=== PATIENT | male | born 1930 | race African-American/Black ===

== ENCOUNTER 2016-10-24 14:28 | Emergency (ER) | payer MEDICARE, OTHER ==
[~2016-10-24] VITALS: Ht 190.5 cm; Wt 90.9 kg
[~2016-10-24 14:28] MED LIST: ACETAMINOPHEN PO; ADLT ASA LOW81 MG PO; ASCORBIC ACD500 MG PO; ASPIRIN EC81 MG PO; ASPIRIN81 MG PO; AUGMENTIN875TAB PO; CARVEDILOL12.5 MG PO; CARVEDILOL25 MG PO; COLCHICINE0.6 M2 PO; COUMADIN5 MG; COUMADIN5 MG PO; ELIQUIS2.5 MG; ELIQUIS2.5 MG PO; ENALAPRIL10 MG; FLOMAX0.4 M1 PO; FLUARIX QUADRIV1 INJ IM; FUROSEMIDE40 MG PO; HYDROCHLOROT12.5 MG PO; HYDROCO/APAP; HYDROCO/APAP1 TA9 OR; HYDROCO/APAP1 TA9 PO; HYDROCODONE/ACE1 TAB PO; IPRATROPIU0.5 MG/3 M NEB; IRON325 MG PO; JANTOVEN5 MG PO; KEFLEX250 MG PO; LASIX 10 MG10 MG/TA1 PO; LASIX40 MG PO; LIPITOR20 M1 PO; LISINOPRIL5 MG PO; LORTAB 10-325 M1 TAB PO; LORTAB 7.57.5 MG PO; METOPROL TAR25 M1 PO; METOPROL TAR50 MG; MICRO K PO; ONDANSETRON HCL4 MG PO; POT CHLORIDE10 ME1 PO; PRAVASTATIN20 MG; PRAVASTATIN80 MG PO; PROBENECID/COLC1 TAB PO; PROTONIX40 M2 PO; SPIRONOLACT25 MG PO; SUCRALFATE1 GM PO; TORSEMIDE20 M1 PO; UNABLE TO RECONCILE; WARFARIN2.5 MG PO; WARFARIN4 MG PO; WARFARIN5 MG PO; ZESTRIL PO; ZESTRIL/PRI10 MG/TAB PO; ZESTRIL5 M1 PO; ZOFRAN4 M1 PO; [UNRECOGNIZED DRUG - OTHER] PO
[2016-10-24] MEDS ORDERED: POTASSIUM CHLO10 MEQ PO (14:46)
[2016-10-24 14:57] LABS: HEMATOCRIT 37.8 % (39.0-50.0); HEMOGLOBIN 12.5 g/dl (14.0-18.0); IMMATURE GRANULOCYTES 0.2 % (0.0-1.0); MEAN CELL VOLUME 91.7 fL CALC (80.0-100.0); MEAN CORPUSCULAR HGB 30.3 pG CALC (26.0-32.0); MEAN CORPUSCULAR HGB CONC 33.1 g/L CALC (32.0-36.0); NEUT# 2.26 thou/uL (1.82-7.42); RED BLOOD COUNT 4.12 mill/uL (4.70-6.10); RED CELL DISTRI WIDTH 15.6 % (11.5-15.5)
[2016-10-24 15:19] LABS: PROTHROMBIN TIME 11.3 SECONDS (9.0-12.5)
[2016-10-24 15:21] LABS: ALBUMIN 4.1 g/dL (3.2-5.0); ALKALINE PHOSPHATASE 83 u/l (38-126); AMYLASE 102 u/l (30-110); ANION GAP 17 (6-22 (CALC)); BILIRUBIN, TOTAL 0.8 mg/dL (0.0-1.4); BUN 23 mg/dL (8-23); BUN/CREATININE RATIO 15 (12-20 (CALC)); CALCIUM 9.4 mg/dL (8.4-10.2); CARBON DIOXIDE 26 mmol/l (22-30); CHLORIDE 104 mmol/l (95-108); CREATININE 1.5 mg/dL (0.7-1.3); GFR 45 ML/MIN (>=60 (CALC)); GFR FOR AFR.AMER. 54 ML/MIN (>=60 (CALC)); GLUCOSE 84 mg/dL (82-115); LIPASE 101 u/l (23-300); POTASSIUM 4.4 mmol/l (3.5-5.1); SGOT/AST 28 u/l (19-48); SGPT/ALT 17 u/l (11-66); SODIUM 143 mmol/l (137-146); TOTAL PROTEIN 8.2 g/dL (6.3-8.2)
[2016-10-24 15:33] LABS: MYOGLOBIN 35 ng/mL (0 - 121)
[2016-10-24 16:21] LABS: URINE BILIRUBIN - DIPSTICK NEGATIVE (NEGATIVE); URINE BLOOD DIPSTICK NEGATIVE (NEGATIVE); URINE CLARITY CLEAR; URINE COLOR YELLOW; URINE GLUCOSE - DIPSTICK NEGATIVE (NEGATIVE); URINE KETONE NEGATIVE (NEGATIVE); URINE LEUK ESTERASE NEGATIVE (NEGATIVE); URINE NITRITE - DIPSTICK NEGATIVE (Negative); URINE PH 5.5 (4.5-8.0); URINE PROTEIN - DIPSTICK NEGATIVE (NEG-TRACE); URINE UROBILINOGEN - DIPSTICK 0.2 E.U./dL (0.2)
[2016-10-24 19:08] VITALS: BP 151/73
== END 2016-10-24 19:12 | disposition home or self-care (01) ==
LOC: ED 14:28
PROVIDERS: Emergency Medicine
DX: R07.89 Other chest pain (principal); R94.31 Abnormal electrocardiogram [ECG] [EKG]; Z95.0 Presence of cardiac pacemaker; Z86.711 Personal history of pulmonary embolism

== ENCOUNTER 2016-11-27 10:17 | Observation (INO) | payer MEDICARE, OTHER ==
[~2016-11-27] VITALS: Ht 190.5 cm; Wt 88.1 kg
[2016-11-27] VITALS (9 sets, daily range): BP systolic 99–144; BP diastolic 65–86
[~2016-11-27 10:17] MED LIST changes: +POTASSIUM CHLO10 MEQ PO
--- NOTE | 2016-11-27 10:45 | NUR ---
PT ARRIVED TO THE UNIT VIA WHEELCHAIR A DIRECT ADMIT, PT AMBULATED WITH A STRONG STEADY GAIT TO THE DIGITAL SCALE AND THEN TO THE BED, PT A & O X3, PERRL, LUNG SOUNDS CLEAR IN ALL GUZMAN, TRACE EDEMA IN BILAT ANKLES WITH WEAK PEDAL PULSES, DONAVON HOSE APPLIED PER MD ORDER, 22G R HAND IV STARTED AND SALINE LOCKED, MONITORING EQUIPMENT AND CALL MATT EXPLAINED TO PT PRIOR TO APPLYING EQUIPMENT, PT VERBALIZED UNDERSTANDING, ADMISSION ASSESSMENT COMPLETED, SEE INTERVENTIONS, SAFETY MEASURES INTRODUCED, CALL MATT WITHIN REACH
--- NOTE | 2016-11-27 11:00 | NUR ---
DR LAM'S OFFICE CALLED AND CONFIRMED PT WAS ADMITTED TO ICU BED 6;
[2016-11-27 11:21] LABS: HEMATOCRIT 38.3 % (39.0-50.0); IMMATURE GRANULOCYTES 0.4 % (0.0-1.0); MEAN CELL VOLUME 89.9 fL CALC (80.0-100.0); MEAN CORPUSCULAR HGB 30.5 pG CALC (26.0-32.0); MEAN CORPUSCULAR HGB CONC 33.9 g/L CALC (32.0-36.0); NEUT# 2.41 thou/uL (1.82-7.42); RED BLOOD COUNT 4.26 mill/uL (4.70-6.10); RED CELL DISTRI WIDTH 16.2 % (11.5-15.5)
--- NOTE | 2016-11-27 11:30 | NUR ---
SETUP ASSISTANCE PROVIDED WITH LUNCH TRAY
--- NOTE | 2016-11-27 12:05 | NUR ---
PT LAYING IN BED WATCHING TV, VERBALIZES NO COMPLAINTS, TOLERATED LUNCH WELL, REMINDED TO CALL FOR ASSISTANCE CALL MATT WITHIN REACH
--- NOTE | 2016-11-27 12:30 | NUR ---
LAB AT BEDSIDE FOR REDRAW
[2016-11-27 13:05] LABS: CALCIUM 9.6 mg/dL (8.4-10.2); CREATININE 1.4 mg/dL (0.7-1.3); POTASSIUM 4.1 mmol/l (3.5-5.1)
--- NOTE | 2016-11-27 13:16 | NUR ---
PT LAYING IN BED RESTING WITH EYES CLOSED, AROUSES EASILY TO VERBAL STIMULI, NO S/S OF DISTRESS, CALL MATT WITHIN REACH
--- NOTE | 2016-11-27 14:40 | NUR ---
PT LAYING IN BED WATCHING TV, VERBALIZES NO COMPLAINTS, CALL MATT WITHIN REACH
--- NOTE | 2016-11-27 16:16 | NUR ---
PT TALKING ON CELL PHONE, DENIES ANY CHEST PAIN, REMINDED TO CALL FOR ASSISTANCE, CALL MATT WITHIN REACH
--- NOTE | 2016-11-27 16:55 | NUR ---
HERPETOLOGY TEACHER AT BEDSIDE DISCUSSING DISCHARGE PLANNING
--- NOTE | 2016-11-27 17:45 | NUR ---
SETUP ASSISTANCE PROVIDED WITH PM MEAL TRAY
--- NOTE | 2016-11-27 18:50 | NUR ---
RECEIVED REPORT FROM ESTEE QUEVEDO LPN. ASSUMED PT CARE.
--- NOTE | 2016-11-27 19:00 | NUR ---
DR. LAM IN TO SEE PT; PT DENIES ANY CHEST PAIN OR GENERALIZED DISCOMFORT AT THIS TIME, RESP EVEN AND UNLABORED, PACED ON MONITOR HR 56-66, BP 106/62, SPO2 98% ON ROOM AIR; LUNGS ARE CLEAR ON AUSCULTATION, DENIES ANY SKIN ISSUES, AND NONE NOTED; DONAVON HOSE ARE IN PLACE, SKIN IS WARM AND DRY, ACYANOTIC, SOME BILATERAL TRACE EDEMA NOTED ON ANKLES. RADIAL PULSES ARE STRONG, EXPLAINED MED SCHEDULE AND PLAN OF CARE; VOICES UNDERSTANDING, CALL MATT IS AT REACH WILL CONTINUE TO MONITOR.
--- NOTE | 2016-11-27 20:38 | NUR ---
PT RESTING IN BED WATCHING TV, ALERT AND ORIENTED X3; C/O ACHING ABDOMINAL PAIN; RATES IT AT 3/10, REQUESTING PAIN MED FOR IT. WILL MEDICATE DRDarius ORDERS; VSS, AFEBRILE, PACER ON MONITOR; DENIES CHEST PAIN OR N/V; WILL CONTINUE TO MONITOR. CALL MATT IS AT REACH.
--- NOTE | 2016-11-27 20:53 | NUR ---
MEDICATED WITH LORTAB FOR ACHING GENERALIZED PAIN, RATES PAIN AT 6/10, WILL CONTINUE TO REASSESS. ENCOURAGED TO CALL IF NEEDED, DENIES CHEST PAIN AT THIS TIME; NO DISTRESS NOTED; CALL MATT IS AT REACH.
--- NOTE | 2016-11-27 22:10 | NUR ---
PT IS RESTING QUIETLY IN BED; RESPONDS TO VERBAL OR PHYSICAL STIMULI; DENIES CHEST PAIN OR OTHER DISCOMFORT AT THIS TIME, RESP ARE EVEN AND UNLABORED; CALL MATT IS AT REACH WILL CONTINUE TO MONITOR.
--- NOTE | 2016-11-27 23:10 | NUR ---
VETERINARIAN ASSISTANT IN PT ROOM DRAWING TROPONIN.
[2016-11-28] VITALS (9 sets, daily range): BP systolic 100–156; BP diastolic 68–79
--- NOTE | 2016-11-28 00:11 | NUR ---
PT CONTINUES DENYING CHEST PAIN OR GENRALIZED PAIN AT THIS TIME; AFEBRILE, PACED ON MONITOR, HR 60, RR 18 EVEN AND UNLABORED, BP 118/69, SPO2 96% ON RA, IV SITE IS FREE OF REDNESS OR EDEMA, FLUSHES WELL, ENCORAGED PT TO CALL IF NEEDED; CALL MATT IS AT REACH, WILL CONTINUE TO MONITOR.
--- NOTE | 2016-11-28 02:11 | NUR ---
FOUND PT LYING ON RIGHT SIDE POSITION, APPEARS TO BE SLEEPING WITH EYES CLOSED; RESP ARE EVEN AND UNLABORED; VSS, VOICES NO NEW COMPLAINTS AT THIS TIME. WILL CONTINUE TO MONITOR. CALL MATT AT REACH.
--- NOTE | 2016-11-28 04:05 | NUR ---
SQL ANALYST IN PT ROOM DRAWING LAB SAMPLES.
--- NOTE | 2016-11-28 04:12 | NUR ---
PT VOICES NO NEW COMPLAINTS AT THIS TIME; NO SIGNS OF DISTRESS NOTED, VSS, RESP ARE UNLABORED; WILL CONTINUE TO MONITOR.
--- NOTE | 2016-11-28 04:20 | NUR ---
RT IN PT ROOM DOING A EKG AT THIS TIME.
[2016-11-28 05:28] LABS: ALBUMIN 3.6 g/dL (3.2-5.0); BILIRUBIN, TOTAL 0.5 mg/dL (0.0-1.4); CALCIUM 8.9 mg/dL (8.4-10.2); CHOLESTEROL HDL RATIO 4.5 (<4.4 (CALC)); CREATININE 1.4 mg/dL (0.7-1.3); POTASSIUM 3.8 mmol/l (3.5-5.1); TOTAL PROTEIN 6.6 g/dL (6.3-8.2)
--- NOTE | 2016-11-28 05:30 | NUR ---
RADIOLOGIST TECHN IN PT ROOM FOR CXR.
--- NOTE | 2016-11-28 06:30 | NUR ---
PT AWAKE, ALERT AND ORIENTED X3; DENIES CHEST PAIN, C/O ABDOMEN PAIN, RATES IT AT 6/10; MEDICATED WITH CARAFATE AT THIS TIME; RESP ARE EVEN AND UNLABORED; VSS, AFEBRILE, NO DISTRESS NOTED; IV SITE REMAINS PATENT, ENCOURAGED TO CALL IF NEEDED. WILL CONTINUE TO REASSESS.
--- NOTE | 2016-11-28 07:20 | NUR ---
PT LAYING IN BED RESTING WITH EYES CLOSED, AROUSES EASILY TO VERBAL STIMULI, A&O X3, PERRL, PT DENIES ANY CHEST PAIN OR ABD PAIN, HR PACED 60, RESP. 20, BP 156/79, O2 98% ON RA, LUNG SOUNDS CLEAR IN ALL GUZMAN, 22G R HAND SALINE LOCKED, NO BLEEDING AT SITE, TRACE EDEMA IN BILAT ANKLES, AM ASSESSMENT COMPLETE, SEE INTERVENTIONS, SAFETY MEASURES REINFORCED, CALL MATT WITHIN REACH
--- NOTE | 2016-11-28 07:45 | NUR ---
SETUP ASSISTANCE PROVIDED WITH MORENA ALEXANDRE
--- NOTE | 2016-11-28 08:10 | NUR ---
PT LAYING IN BED WATCHING TV, VERBALIZES NO COMPLAINTS, PT TOLERATED AM MEAL WELL, REMINDED TO CALL FOR ASSISTANCE, CALL MATT WITHIN REACH
--- NOTE | 2016-11-28 08:10 | NUR ---
DR LAM AT BEDSIDE DISCUSSING PLAN OF CARE AND POSSIBLE DISCHARGE
--- NOTE | 2016-11-28 10:31 | NUR ---
LAB AT BEDSIDE
--- NOTE | 2016-11-28 11:16 | NUR ---
DR LAM'S OFFICE NOTIFIED OF 4TH TROPONIN RESULT PER MD REQUEST, SPOKE TO RAMILA DUE TO MD BEING IN STRESS LAB
--- NOTE | 2016-11-28 11:42 | NUR ---
PT ASSISTED TO THE BSC AND BACK TO BED, PT AMBULATED WITH A STRONG UNSTEADY GAIT, CALL MATT WITHIN REACH
--- NOTE | 2016-11-28 11:50 | NUR ---
PT AMBULATING IN THE UNIT, PT TOLERATING WELL
--- NOTE | 2016-11-28 13:17 | NUR ---
PT LAYING IN BED WATCHING TV, NO S/S OF DISTRESS, CALL MATT WITHIN REACH
== END 2016-11-28 13:45 | disposition home or self-care (01) ==
LOC: ENPENDDIS → ICU 10:17
PROVIDERS: ADMIT Internal Medicine Geriatric Medicine; ATTEND Internal Medicine Geriatric Medicine
DX: I25.110 Atherosclerotic heart disease of native coronary artery with unstable angina pectoris (principal); I13.0 Hypertensive heart and chronic kidney disease with heart failure and stage 1 through stage 4 chronic kidney disease, or unspecified chronic kidney disease; I50.42 Chronic combined systolic (congestive) and diastolic (congestive) heart failure; N18.3 Chronic kidney disease, stage 3 (moderate); E78.5 Hyperlipidemia, unspecified; M19.90 Unspecified osteoarthritis, unspecified site; I49.3 Ventricular premature depolarization; K21.9 Gastro-esophageal reflux disease without esophagitis; K27.9 Peptic ulcer, site unspecified, unspecified as acute or chronic, without hemorrhage or perforation; Z95.810 Presence of automatic (implantable) cardiac defibrillator

== ENCOUNTER 2016-12-31 13:58 | Observation (INO) | payer MEDICARE, OTHER ==
[~2016-12-31] VITALS: Ht 190.5 cm; Wt 89.4 kg
[2016-12-31 14:15] VITALS: BP 151/77
[2016-12-31 15:00] LABS: HEMATOCRIT 37.4 % (39.0-50.0); HEMOGLOBIN 12.7 g/dl (14.0-18.0); MEAN CELL VOLUME 89.9 fL CALC (80.0-100.0); MEAN CORPUSCULAR HGB 30.5 pG CALC (26.0-32.0); RED BLOOD COUNT 4.16 mill/uL (4.70-6.10); RED CELL DISTRI WIDTH 16.8 % (11.5-15.5)
[2016-12-31 15:14] LABS: ALBUMIN 4.4 g/dL (3.2-5.0); BILIRUBIN, TOTAL 0.8 mg/dL (0.0-1.4); CALCIUM 9.9 mg/dL (8.4-10.2); CREATININE 1.5 mg/dL (0.7-1.3); POTASSIUM 4.4 mmol/l (3.5-5.1); TOTAL PROTEIN 7.9 g/dL (6.3-8.2)
--- NOTE | 2016-12-31 16:07 | NUR ---
NOTIFIED TERE BRUNNER ABOUT ER CALLING. SAID "HE RAN A EIGHT BEAT RUN OF V-TACH WITH A PAUSE AND A SEVEN BEAT RUN OF V-TACH. NOTIFIED ER TO SEND UP THE STRIP.
[2016-12-31 16:19] VITALS: BP 138/75
--- NOTE | 2016-12-31 16:30 | NUR ---
NOTIFIED FROM SHERI JACOB IN ER THAT HE RAN A 12 BEAT OF V-TACH. NOTIFIED NURSE OF V-TACH. CALLED ER PER NURSE TO FIND OUT IF HE WAS RUNNING V-TACH STILL. SHERI TOLD ME HE WAS BACKED PACED ON THE MONITOR.
--- NOTE | 2016-12-31 20:00 | NUR ---
PATIENT RESTING IN BED AT THIS TIME-AWAKE ALERT AND ORIENTEDX3. IV STARTED TO LEFT AC-#22 GAUGE WITH GOOD BLOOD RETURN. IVF HOOKED UP AT 60CC/HR ORDERED. SAFETY PRECAUTIONS REVIEWED WITH PATIENT. CALL LIGHT IN REACH. WILL CONT TO MONITOR.
[2016-12-31 20:27] VITALS: BP 132/84
[2016-12-31 22:30] VITALS: BP 127/81
--- NOTE | 2016-12-31 22:42 | NUR ---
PATIENT CALLED AND STATES THAT HE IS HAVING LEFT SIDEDCHEST AND BACK PAIN. O2 VIA NASAL CANNULA APPLIED. VS TAKEN AND RECORDED. TELE READING PACED AT 60. PATIENT MEDICATED FOR 5/10 ON PAIN SCALE WITH LORTAB 10/325MG PO. CALL LIGHT IN REACH. WILL CONT TO MONITOR.
--- NOTE | 2017-01-01 | NUR ---
PATIENT STATES THAT HE HAD GOOD RELIEF FROM LORTAB GIVEN EARLIER FOR CHEST PAIN. O2 REMAINS IN PLACE AT THIS TIME. CALL LIGHT IN REACH. WILL CONT TO MONITOR.
[2017-01-01 02:03] VITALS: BP 133/84
--- NOTE | 2017-01-01 04:26 | NUR ---
PATIENT APPEARS SLEEPINGA T THIS TIME WITH EYES CLOSED. CALL LIGHT IN REACH. WILL CONT TO MONITOR.
[2017-01-01 05:35] VITALS: BP 135/90
[2017-01-01 06:16] LABS: HEMATOCRIT 36.9 % (39.0-50.0); HEMOGLOBIN 12.3 g/dl (14.0-18.0); IMMATURE GRANULOCYTES 0.3 % (0.0-1.0); MEAN CELL VOLUME 90.9 fL CALC (80.0-100.0); MEAN CORPUSCULAR HGB 30.3 pG CALC (26.0-32.0); MEAN CORPUSCULAR HGB CONC 33.3 g/L CALC (32.0-36.0); NEUT# 3.53 thou/uL (1.82-7.42); RED BLOOD COUNT 4.06 mill/uL (4.70-6.10)
[2017-01-01 06:25] LABS: URINE BILIRUBIN - DIPSTICK NEGATIVE (NEGATIVE); URINE BLOOD DIPSTICK NEGATIVE (NEGATIVE); URINE CLARITY CLEAR; URINE COLOR YELLOW; URINE GLUCOSE - DIPSTICK NEGATIVE (NEGATIVE); URINE KETONE NEGATIVE (NEGATIVE); URINE LEUK ESTERASE NEGATIVE (Negative); URINE NITRITE - DIPSTICK NEGATIVE (Negative); URINE PH 6.5 (4.5-8.0); URINE PROTEIN - DIPSTICK NEGATIVE (NEG-TRACE); URINE UROBILINOGEN - DIPSTICK 0.2 E.U./dL (0.2)
[2017-01-01 06:43] LABS: ALBUMIN 3.9 g/dL (3.2-5.0); ALKALINE PHOSPHATASE 75 u/l (38-126); ANION GAP 14 (6-22 (CALC)); BILIRUBIN, TOTAL 0.9 mg/dL (0.0-1.4); BUN 21 mg/dL (8-23); BUN/CREATININE RATIO 16 (12-20 (CALC)); CALCULATED LDLCHOLESTEROL 147 mg/dL (62-129 (CALC)); CARBON DIOXIDE 29 mmol/l (22-30); CHLORIDE 102 mmol/l (95-108); CHOLESTEROL HDL RATIO 4.3 (<4.4 (CALC)); CREATININE 1.3 mg/dL (0.7-1.3); GFR 53 ML/MIN (>=60 (CALC)); GFR FOR AFR.AMER. > 60 ML/MIN (>=60 (CALC)); GLUCOSE 81 mg/dL (82-115); HDL CHOLESTEROL 53 mg/dL (>=40); POTASSIUM 4.3 mmol/l (3.5-5.1); SGOT/AST 15 u/l (19-48); SGPT/ALT 24 u/l (11-66); SODIUM 140 mmol/l (137-146); TOTAL CHOLESTEROL 224 mg/dl (0-199); TOTAL TRIGLYCERIDES 123 mg/dl (30-149); VLDL CHOLESTROL 25 mg/dl (0-38 (CALC))
[2017-01-01 08:36] VITALS: BP 139/67
--- NOTE | 2017-01-01 08:38 | NUR ---
REPORT RECEIVED FROM MORNING NURSE; PT.HAS EATEN BREAKFAST AND IS RESTING IN BED WATCHING TV. DENIES ANY PAIN AT THIS TIME. PT.V/S AND ASSESSMENT PERFORMED AND MORNING MEDICATIONS ADMINISTERED. DENIES ANY FURTHER NEEDS AT THIS TIME
--- NOTE | 2017-01-01 12:09 | NUR ---
PT.AMBULATING HALLWAY, APPEARS TO BE STABLE ON FEET, NO S/S OF DISTRESS DURING AMBULATION
[2017-01-01 12:30] VITALS: BP 114/70
[2017-01-01 16:19] VITALS: BP 155/86
[2017-01-01] MEDS ORDERED: LORTAB 7.5-3251 TAB PO (17:37)
== END 2017-01-01 18:11 | disposition home or self-care (01) ==
LOC: ENPENDDIS → MS2 13:58
PROVIDERS: ADMIT Internal Medicine Geriatric Medicine; ATTEND Internal Medicine Geriatric Medicine
DX: R07.2 Precordial pain (principal); I25.10 Atherosclerotic heart disease of native coronary artery without angina pectoris; I13.0 Hypertensive heart and chronic kidney disease with heart failure and stage 1 through stage 4 chronic kidney disease, or unspecified chronic kidney disease; N18.3 Chronic kidney disease, stage 3 (moderate); I50.42 Chronic combined systolic (congestive) and diastolic (congestive) heart failure; M19.90 Unspecified osteoarthritis, unspecified site; K21.9 Gastro-esophageal reflux disease without esophagitis; E78.5 Hyperlipidemia, unspecified

== ENCOUNTER 2017-01-20 07:34 | Observation (INO) | payer MEDICARE, OTHER ==
[~2017-01-20] VITALS: Ht 190.5 cm; Wt 86.2 kg
[~2017-01-20 07:34] MED LIST changes: +LORTAB 7.5-3251 TAB PO
--- NOTE | 2017-01-20 07:35 | NUR ---
PT TO ROOM 10 VIA WC. ABLE TO STAND AND TRANSFER W/CGA
[2017-01-20 08:05] LABS: HEMATOCRIT 36.7 % (39.0-50.0); HEMOGLOBIN 12.4 g/dl (14.0-18.0); IMMATURE GRANULOCYTES 0.3 % (0.0-1.0); MEAN CELL VOLUME 90.8 fL CALC (80.0-100.0); MEAN CORPUSCULAR HGB 30.7 pG CALC (26.0-32.0); MEAN CORPUSCULAR HGB CONC 33.8 g/L CALC (32.0-36.0); NEUT# 3.83 thou/uL (1.82-7.42); RED BLOOD COUNT 4.04 mill/uL (4.70-6.10); RED CELL DISTRI WIDTH 16.1 % (11.5-15.5)
--- NOTE | 2017-01-20 08:05 | NUR ---
pt to room per w/c, states has pain off and on since last night
[2017-01-20 08:20] LABS: BILIRUBIN, TOTAL 0.6 mg/dL (0.0-1.4); CALCIUM 9.5 mg/dL (8.4-10.2); CREATININE 1.4 mg/dL (0.7-1.3); POTASSIUM 4.2 mmol/l (3.5-5.1); TOTAL PROTEIN 8.1 g/dL (6.3-8.2)
--- NOTE | 2017-01-20 08:42 | NUR ---
NITRO SL X 1 FOR CONTINUED C/O CHEST PAIN PER MD. BP 138/68 NO C/O N/V
--- NOTE | 2017-01-20 09:06 | NUR ---
PT REPORTS RELIEF FROM CHEST PAIN. VSS. COMFORT MEASURES PROVIDED. MD AT BEDSIDE EVALUATING PT AND DISCUSSING POC.
--- NOTE | 2017-01-20 09:29 | NUR ---
DR WOLFF SPOKE W/DR LAM VIA PHONE. PT ADVISED OF POC OBS ON MEDSURG. VSS. REPORTS NO PAIN AT THIS TIME.
--- NOTE | 2017-01-20 09:50 | NUR ---
REPORT PROVIDED TO [facility] NURSE ON MEDSURG. PT TO [facility] ON TELEMETRY. IV SITE HEALTHY. NO C/O CHEST PAIN AT THIS TIME. VSS.
--- NOTE | 2017-01-20 10:00 | NUR ---
PT ARRIVED FROM ER VIA STRETCHER ACCOMPANIED BY STAFF. IV SITE IS FREE FROM REDNESS OR EDEMA,
[2017-01-20 10:22] VITALS: BP 147/67
--- NOTE | 2017-01-20 10:40 | NUR ---
LEFT A MESSAGE AT [phone] LAM TO CALL RE: NEW ADMISSION. THEN ATTEMPTED TO CALL HIS HOME NUMBER NO ANSWER
--- NOTE | 2017-01-20 11:08 | NUR ---
RETURNED CALL WITH NEW ORDERS
--- NOTE | 2017-01-20 12:00 | NUR ---
PT HAS BEEN SITTING UP IN THE COUCH NO DISTRESS NOTED. IV SITE IS FREE FROM REDNESS OR EDEMA. TELE MONITOR IN PLACE.,
[2017-01-20 15:35] VITALS: BP 126/75
--- NOTE | 2017-01-20 16:00 | NUR ---
PT IS RELAXING IN BED HAS AMBUALTED IN THE [place] AND VISITED WITH FRIENDS.,
[2017-01-20 19:20] VITALS: BP 112/63
--- NOTE | 2017-01-20 20:50 | NUR ---
PT RESTING IN SUPINE POSITION;PT DENIES ANY CHEST PAIN AT THIS TIME;ASSESSMENT COMPLETED;BP OF 114/68 AND HR OF 62 OBTAINED;#20G TO RIGHT HAND FLUSHED AND PATENT;TELE MONITOR IN PLACE READING PACED 72;NITRO PASTE TO RIGHT SHOULDER NOTED;PEDAL PULSES WEAK;SKIN INTACT;PT DENIES ANY NEEDS;SAFETY PRECAUTIONS REINFORCED;PT EDUCATED TO CALL FOR ASSISTANCE IF NEEDED;BED IN LOWEST POSITION WITH CALL LIGHT IN REACH;WILL CONTINUE TO MONITOR
[2017-01-20 23:37] VITALS: BP 127/67
--- NOTE | 2017-01-20 23:50 | NUR ---
PT APPEARS TO BE SLEEPING IN SUPINE POSITION;WOKE PT TO ADMINISTER SCHEDULED MEDICATION;PT BP 127/67 AND HR 69;PT DENIES ANY CHEST PAIN AND REFUSES SCHEDULED NITRO OINTMENT STATING "LETS NOT AND SEE HOW WE DO";PT EDUCATED TO CALL FOR ASSISTANCE IF NEEDED;CALL LIGHT IN REACH;WILL CONTINUE TO MONITOR
[2017-01-21 03:40] VITALS: BP 126/69
--- NOTE | 2017-01-21 05:40 | NUR ---
PT RESTING IN SUPINE POSITION THIS MORNING;PT DENIES ANY PAIN BUT DOES COMPLAIN OF SOME CHEST PRESSURE;VS OBTAINED,BP OF 134/84 AND HR 63;SCHEDULED NITRO OINTMENT APPLIED;TELE MONTIOR IN PLACE READING PACED 61;PT DENIES ANY OTHER NEEDS AT THIS TIME;PT EDUCATED TO CALL FOR ASSISTANCE IF NEEDED;CALL LIGHT IN REACH;WILL MONITOR CLOSELY
[2017-01-21 06:05] LABS: ALKALINE PHOSPHATASE 92 u/l (38-126); ANION GAP 13 (6-22 (CALC)); BILIRUBIN, TOTAL 0.5 mg/dL (0.0-1.4); BUN 19 mg/dL (8-23); BUN/CREATININE RATIO 15 (12-20 (CALC)); CALCIUM 8.8 mg/dL (8.4-10.2); CALCULATED LDLCHOLESTEROL 126 mg/dL (62-129 (CALC)); CARBON DIOXIDE 27 mmol/l (22-30); CHLORIDE 104 mmol/l (95-108); CHOLESTEROL HDL RATIO 5.7 (<4.4 (CALC)); CREATININE 1.3 mg/dL (0.7-1.3); GFR 53 ML/MIN (>=60 (CALC)); GFR FOR AFR.AMER. > 60 ML/MIN (>=60 (CALC)); GLUCOSE 95 mg/dL (82-115); HDL CHOLESTEROL 30 mg/dL (>=40); POTASSIUM 4.2 mmol/l (3.5-5.1); SGOT/AST 18 u/l (19-48); SGPT/ALT 30 u/l (11-66); SODIUM 139 mmol/l (137-146); TOTAL CHOLESTEROL 170 mg/dl (0-199); TOTAL PROTEIN 6.3 g/dL (6.3-8.2); TOTAL TRIGLYCERIDES 74 mg/dl (30-149); VLDL CHOLESTROL 15 mg/dl (0-38 (CALC))
--- NOTE | 2017-01-21 07:00 | NUR ---
SHIFT CHANGE REPORT FROM HERMILA SON AWAKE ALERT AND ORIENTED AMBULATING HALLWAYS AT THIS TIME, NO C/O DISCOMFORT, TELE MONITOR IN PLACE, CALL MATT IN REACH.
[2017-01-21 07:50] VITALS: BP 129/76
--- NOTE | 2017-01-21 08:39 | NUR ---
DR LAM ROUNDING WITH PT AT THIS TIME AND DISCUSSED FOLLOW U- WITH CARDIOLOGY
[2017-01-21 11:05] VITALS: BP 124/66
--- NOTE | 2017-01-21 12:00 | NUR ---
SITTING UP IN SOFA AFTER CONSUMING MEAL, ALL NEEDS ADDRESSED, NO C/O DISCOMFORT, CALL MATT IN REACH.
[2017-01-21 14:09] VITALS: BP 122/68
[2017-01-21 17:19] VITALS: BP 122/68
--- NOTE | 2017-01-21 18:23 | NUR ---
Discharge instructions given. Patient verbalizes understanding of same. Discharged in good condition via Wheelchair to Home with friend. All belongings sent with pt.
== END 2017-01-21 18:25 | disposition home or self-care (01) ==
LOC: ED 07:34 → ED-I 09:05 → ED 09:25 → MS2 09:26
PROVIDERS: Family Medicine; ADMIT Internal Medicine Geriatric Medicine; ATTEND Internal Medicine Geriatric Medicine
DX: R07.89 Other chest pain (principal); I25.10 Atherosclerotic heart disease of native coronary artery without angina pectoris; E78.5 Hyperlipidemia, unspecified; K21.9 Gastro-esophageal reflux disease without esophagitis; I13.0 Hypertensive heart and chronic kidney disease with heart failure and stage 1 through stage 4 chronic kidney disease, or unspecified chronic kidney disease; N18.9 Chronic kidney disease, unspecified; M19.90 Unspecified osteoarthritis, unspecified site; Z95.810 Presence of automatic (implantable) cardiac defibrillator; Z86.711 Personal history of pulmonary embolism
CPT/HCPCS: J1650

== ENCOUNTER 2017-02-11 07:50 | Emergency (ER) | payer MEDICARE, MEDICAID ==
[~2017-02-11] VITALS: Ht 190.5 cm; Wt 85.0 kg
[2017-02-11 10:57] VITALS: BP 121/77
== END 2017-02-11 11:05 | disposition home or self-care (01) ==
LOC: ED 07:50
DX: S29.9XXA Unspecified injury of thorax, initial encounter (principal); I10 Essential (primary) hypertension; I25.10 Atherosclerotic heart disease of native coronary artery without angina pectoris; E78.5 Hyperlipidemia, unspecified; K21.9 Gastro-esophageal reflux disease without esophagitis; M10.9 Gout, unspecified; W19.XXXA Unspecified fall, initial encounter; Y92.22 Religious institution as the place of occurrence of the external cause; Z86.711 Personal history of pulmonary embolism; Z95.0 Presence of cardiac pacemaker

== ENCOUNTER 2017-04-03 14:06 | Observation (INO) | payer MEDICARE, MEDICAID ==
[~2017-04-03] VITALS: Ht 190.5 cm; Wt 89.4 kg
[2017-04-03 14:34] LABS: HEMOGLOBIN 12.7 g/dl (14.0-18.0); IMMATURE GRANULOCYTES 0.2 % (0.0-1.0); MEAN CELL VOLUME 90.9 fL CALC (80.0-100.0); MEAN CORPUSCULAR HGB 31.2 pG CALC (26.0-32.0); MEAN CORPUSCULAR HGB CONC 34.3 g/L CALC (32.0-36.0); NEUT# 2.38 thou/uL (1.82-7.42); RED BLOOD COUNT 4.07 mill/uL (4.70-6.10); RED CELL DISTRI WIDTH 15.2 % (11.5-15.5)
[2017-04-03 14:53] LABS: ALBUMIN 3.6 g/dL (3.2-5.0); ALKALINE PHOSPHATASE 81 u/l (38-126); ANION GAP 12 (6-22 (CALC)); BILIRUBIN, TOTAL 0.7 mg/dL (0.0-1.4); BUN 15 mg/dL (8-23); BUN/CREATININE RATIO 11 (12-20 (CALC)); CALCIUM 9.4 mg/dL (8.4-10.2); CARBON DIOXIDE 32 mmol/l (22-30); CHLORIDE 104 mmol/l (95-108); CREATININE 1.3 mg/dL (0.7-1.3); GFR 53 ML/MIN (>=60 (CALC)); GFR FOR AFR.AMER. > 60 ML/MIN (>=60 (CALC)); GLUCOSE 111 mg/dL (82-115); POTASSIUM 3.5 mmol/l (3.5-5.1); SGOT/AST 26 u/l (19-48); SGPT/ALT 22 u/l (11-66); SODIUM 145 mmol/l (137-146)
[2017-04-03 15:05] LABS: MYOGLOBIN 43 ng/mL (0 - 121)
[2017-04-03 16:33] LABS: URINE BILIRUBIN - DIPSTICK NEGATIVE (NEGATIVE); URINE BLOOD DIPSTICK NEGATIVE (NEGATIVE); URINE CLARITY CLEAR; URINE COLOR YELLOW; URINE GLUCOSE - DIPSTICK NEGATIVE (NEGATIVE); URINE KETONE NEGATIVE (NEGATIVE); URINE LEUK ESTERASE NEGATIVE (NEGATIVE); URINE NITRITE - DIPSTICK NEGATIVE (Negative); URINE PROTEIN - DIPSTICK NEGATIVE (NEG-TRACE); URINE UROBILINOGEN - DIPSTICK 0.2 E.U./dL (0.2)
[2017-04-03 16:37] VITALS: BP 141/83
[2017-04-03 19:40] VITALS: BP 139/82
[2017-04-04 00:08] VITALS: BP 135/77
[2017-04-04 04:15] VITALS: BP 154/85
[2017-04-04 06:36] LABS: CHOLESTEROL HDL RATIO 4.1 (<4.4 (CALC))
[2017-04-04 07:33] VITALS: BP 159/89
[2017-04-04 11:15] VITALS: BP 145/84
== END 2017-04-04 15:20 | disposition home or self-care (01) ==
LOC: ED 14:06 → ED-I 15:08 → ED 16:02 → MS2 16:03
PROVIDERS: Emergency Medicine; ADMIT Internal Medicine; ATTEND Internal Medicine
DX: R07.9 Chest pain, unspecified (principal); I12.9 Hypertensive chronic kidney disease with stage 1 through stage 4 chronic kidney disease, or unspecified chronic kidney disease; E11.22 Type 2 diabetes mellitus with diabetic chronic kidney disease; N18.3 Chronic kidney disease, stage 3 (moderate); I25.10 Atherosclerotic heart disease of native coronary artery without angina pectoris; E78.5 Hyperlipidemia, unspecified; K21.9 Gastro-esophageal reflux disease without esophagitis; I42.9 Cardiomyopathy, unspecified; I25.2 Old myocardial infarction; Z86.711 Personal history of pulmonary embolism; Z87.891 Personal history of nicotine dependence; Z95.810 Presence of automatic (implantable) cardiac defibrillator; Z85.51 Personal history of malignant neoplasm of bladder; Z87.11 Personal history of peptic ulcer disease

== ENCOUNTER 2017-05-15 07:31 | Emergency (ER) | payer MEDICARE, MEDICAID ==
[~2017-05-15] VITALS: Ht 190.5 cm; Wt 93.0 kg
[~2017-05-15 07:31] MED LIST changes: +ISOSORB DIN10 MG PO; +NAPROXEN250 MG PO; +OMEPRAZOLE10 MG PO
[2017-05-15 08:17] LABS: HEMATOCRIT 31.8 % (39.0-50.0); HEMOGLOBIN 10.9 g/dl (14.0-18.0); IMMATURE GRANULOCYTES 0.2 % (0.0-1.0); MEAN CELL VOLUME 89.6 fL CALC (80.0-100.0); MEAN CORPUSCULAR HGB 30.7 pG CALC (26.0-32.0); MEAN CORPUSCULAR HGB CONC 34.3 g/L CALC (32.0-36.0); NEUT# 3.33 thou/uL (1.82-7.42); RED BLOOD COUNT 3.55 mill/uL (4.70-6.10); RED CELL DISTRI WIDTH 15.6 % (11.5-15.5)
[2017-05-15 08:30] LABS: ALBUMIN 3.3 g/dL (3.2-5.0); BILIRUBIN, TOTAL 0.6 mg/dL (0.0-1.4); CALCIUM 8.6 mg/dL (8.4-10.2); CREATININE 1.4 mg/dL (0.7-1.3); POTASSIUM 4.3 mmol/l (3.5-5.1); TOTAL PROTEIN 6.2 g/dL (6.3-8.2)
[2017-05-15 10:38] LABS: URINE BILIRUBIN - DIPSTICK NEGATIVE (NEGATIVE); URINE BLOOD DIPSTICK NEGATIVE (NEGATIVE); URINE COLOR YELLOW; URINE GLUCOSE - DIPSTICK NEGATIVE (NEGATIVE); URINE KETONE NEGATIVE (NEGATIVE); URINE LEUK ESTERASE NEGATIVE (NEGATIVE); URINE NITRITE - DIPSTICK NEGATIVE (Negative); URINE PROTEIN - DIPSTICK NEGATIVE (NEG-TRACE); URINE UROBILINOGEN - DIPSTICK 0.2 E.U./dL (0.2)
[2017-05-15 10:43] LABS: URINE CLARITY CLEAR
[2017-05-15 10:54] VITALS: BP 144/80
== END 2017-05-15 11:00 | disposition home or self-care (01) ==
LOC: ED 07:31
PROVIDERS: Emergency Medicine
DX: R10.32 Left lower quadrant pain (principal); R10.31 Right lower quadrant pain; R94.31 Abnormal electrocardiogram [ECG] [EKG]; Z95.0 Presence of cardiac pacemaker; I10 Essential (primary) hypertension; K21.9 Gastro-esophageal reflux disease without esophagitis; I25.10 Atherosclerotic heart disease of native coronary artery without angina pectoris

== ENCOUNTER 2017-05-17 02:53 | Emergency (ER) | payer MEDICARE, MEDICAID ==
[~2017-05-17] VITALS: Ht 190.5 cm; Wt 100.0 kg
[2017-05-17 03:57] LABS: HEMATOCRIT 34.6 % (39.0-50.0); HEMOGLOBIN 11.6 g/dl (14.0-18.0); IMMATURE GRANULOCYTES 0.2 % (0.0-1.0); MEAN CELL VOLUME 91.5 fL CALC (80.0-100.0); MEAN CORPUSCULAR HGB 30.7 pG CALC (26.0-32.0); MEAN CORPUSCULAR HGB CONC 33.5 g/L CALC (32.0-36.0); NEUT# 3.38 thou/uL (1.82-7.42); RED BLOOD COUNT 3.78 mill/uL (4.70-6.10); RED CELL DISTRI WIDTH 15.9 % (11.5-15.5)
[2017-05-17 04:09] LABS: ALBUMIN 3.5 g/dL (3.2-5.0); ALKALINE PHOSPHATASE 73 u/l (38-126); AMYLASE 85 u/l (30-110); ANION GAP 12 (6-22 (CALC)); BILIRUBIN, TOTAL 0.5 mg/dL (0.0-1.4); BUN 11 mg/dL (8-23); BUN/CREATININE RATIO 9 (12-20 (CALC)); CARBON DIOXIDE 24 mmol/l (22-30); CHLORIDE 110 mmol/l (95-108); CREATININE 1.3 mg/dL (0.7-1.3); GFR 53 ML/MIN (>=60 (CALC)); GFR FOR AFR.AMER. > 60 ML/MIN (>=60 (CALC)); GLUCOSE 92 mg/dL (82-115); LIPASE 99 u/l (23-300); POTASSIUM 4.4 mmol/l (3.5-5.1); SGOT/AST 19 u/l (19-48); SGPT/ALT 26 u/l (11-66); SODIUM 141 mmol/l (137-146); TOTAL PROTEIN 6.5 g/dL (6.3-8.2)
[2017-05-17] MEDS ORDERED: PERCOCET 5/325M1 TAB PO (04:16)
[2017-05-17 05:26] LABS: URINE BILIRUBIN - DIPSTICK NEGATIVE (NEGATIVE); URINE BLOOD DIPSTICK NEGATIVE (NEGATIVE); URINE COLOR YELLOW; URINE GLUCOSE - DIPSTICK NEGATIVE (NEGATIVE); URINE KETONE NEGATIVE (NEGATIVE); URINE LEUK ESTERASE NEGATIVE (NEGATIVE); URINE NITRITE - DIPSTICK NEGATIVE (Negative); URINE PH 5.5 (4.5-8.0); URINE PROTEIN - DIPSTICK NEGATIVE (NEG-TRACE); URINE UROBILINOGEN - DIPSTICK 0.2 E.U./dL (0.2)
[2017-05-17 05:27] LABS: URINE CLARITY SL CLOUDY
[2017-05-17] MEDS ORDERED: PROTONIX40 MG PO (06:22)
[2017-05-17 06:46] VITALS: BP 157/90
== END 2017-05-17 06:49 | disposition home or self-care (01) ==
LOC: ED 02:53
PROVIDERS: Emergency Medicine
DX: R10.84 Generalized abdominal pain (principal); I10 Essential (primary) hypertension; I25.10 Atherosclerotic heart disease of native coronary artery without angina pectoris; E78.5 Hyperlipidemia, unspecified; K21.9 Gastro-esophageal reflux disease without esophagitis; M10.9 Gout, unspecified; Z85.51 Personal history of malignant neoplasm of bladder; Z95.0 Presence of cardiac pacemaker; Z86.711 Personal history of pulmonary embolism
CPT/HCPCS: S0164

== ENCOUNTER 2017-06-08 10:51 | Emergency (ER) | payer MEDICARE ==
[~2017-06-08] VITALS: Ht 190.5 cm; Wt 100.0 kg
[~2017-06-08 10:51] MED LIST changes: +PERCOCET 5/325M1 TAB PO; +PROTONIX40 MG PO
[2017-06-08 12:27] LABS: HEMATOCRIT 39.9 % (39.0-50.0); HEMOGLOBIN 12.4 g/dl (14.0-18.0); IMMATURE GRANULOCYTES 0.3 % (0.0-1.0); MEAN CELL VOLUME 97.1 fL CALC (80.0-100.0); MEAN CORPUSCULAR HGB 30.2 pG CALC (26.0-32.0); MEAN CORPUSCULAR HGB CONC 31.1 g/L CALC (32.0-36.0); NEUT# 2.06 thou/uL (1.82-7.42); RED BLOOD COUNT 4.11 mill/uL (4.70-6.10)
[2017-06-08 12:44] LABS: ALBUMIN 3.7 g/dL (3.2-5.0); ALKALINE PHOSPHATASE 75 u/l (38-126); ANION GAP 16 (6-22 (CALC)); BILIRUBIN, TOTAL 0.6 mg/dL (0.0-1.4); BUN 11 mg/dL (8-23); BUN/CREATININE RATIO 8 (12-20 (CALC)); CALCIUM 8.6 mg/dL (8.4-10.2); CARBON DIOXIDE 20 mmol/l (22-30); CHLORIDE 108 mmol/l (95-108); CREATININE 1.3 mg/dL (0.7-1.3); GFR 53 ML/MIN (>=60 (CALC)); GFR FOR AFR.AMER. > 60 ML/MIN (>=60 (CALC)); GLUCOSE 129 mg/dL (82-115); POTASSIUM 3.5 mmol/l (3.5-5.1); SGOT/AST 42 u/l (19-48); SGPT/ALT 18 u/l (11-66); SODIUM 140 mmol/l (137-146); TOTAL PROTEIN 6.7 g/dL (6.3-8.2)
[2017-06-08 12:45] LABS: DIGOXIN 1.4 ng/mL (0.8-2.0)
[2017-06-08 12:55] LABS: MYOGLOBIN 48 ng/mL (0 - 121)
[2017-06-08 13:44] LABS: URINE BILIRUBIN - DIPSTICK NEGATIVE (NEGATIVE); URINE BLOOD DIPSTICK NEGATIVE (NEGATIVE); URINE COLOR YELLOW; URINE GLUCOSE - DIPSTICK NEGATIVE (NEGATIVE); URINE KETONE NEGATIVE (NEGATIVE); URINE LEUK ESTERASE NEGATIVE (NEGATIVE); URINE NITRITE - DIPSTICK NEGATIVE (Negative); URINE PROTEIN - DIPSTICK TRACE mg/dL (NEG-TRACE); URINE SPECIFIC GRAVITY 1.025; URINE UROBILINOGEN - DIPSTICK 0.2 E.U./dL (0.2)
[2017-06-08 13:45] LABS: URINE CLARITY CLEAR
[2017-06-08 15:11] VITALS: BP 172/82
== END 2017-06-08 15:20 | disposition home or self-care (01) ==
LOC: ED 10:51
PROVIDERS: Emergency Medicine
DX: R00.2 Palpitations (principal); I10 Essential (primary) hypertension; I25.10 Atherosclerotic heart disease of native coronary artery without angina pectoris; E78.5 Hyperlipidemia, unspecified; K21.9 Gastro-esophageal reflux disease without esophagitis; Z95.0 Presence of cardiac pacemaker; Z86.711 Personal history of pulmonary embolism

== ENCOUNTER 2017-06-28 15:30 | Emergency (ER) | payer MEDICARE ==
[~2017-06-28] VITALS: Ht 190.5 cm; Wt 85.0 kg
[2017-06-28 18:13] LABS: HEMATOCRIT 37.5 % (39.0-50.0); HEMOGLOBIN 12.5 g/dl (14.0-18.0); IMMATURE GRANULOCYTES 0.4 % (0.0-1.0); MEAN CELL VOLUME 89.9 fL CALC (80.0-100.0); MEAN CORPUSCULAR HGB CONC 33.3 g/L CALC (32.0-36.0); NEUT# 2.8 thou/uL (1.82-7.42); RED BLOOD COUNT 4.17 mill/uL (4.70-6.10); RED CELL DISTRI WIDTH 15.5 % (11.5-15.5)
[2017-06-28 18:49] LABS: ALBUMIN 3.7 g/dL (3.2-5.0); BILIRUBIN, TOTAL 0.4 mg/dL (0.0-1.4); CALCIUM 9.8 mg/dL (8.4-10.2); CREATININE 1.5 mg/dL (0.7-1.3); POTASSIUM 3.7 mmol/l (3.5-5.1); TOTAL PROTEIN 6.7 g/dL (6.3-8.2)
[2017-06-28] MEDS ORDERED: KLOR-CON 1010 MEQ PO (20:43)
[2017-06-28] MEDS ORDERED: METOPROLOL SUCC25 MG PO (20:43)
[2017-06-28] MEDS ORDERED: SUCRALFATE1 GM PO (20:44)
[2017-06-28] MEDS ORDERED: LASIX20 MG PO (20:45)
[2017-06-28] MEDS ORDERED: DIGOXIN0.125 MG PO (20:45)
[2017-06-28] MEDS ORDERED: HYDRALAZINE10 MG PO (20:46)
[2017-06-28 22:03] LABS: URINE BILIRUBIN - DIPSTICK NEGATIVE (NEGATIVE); URINE BLOOD DIPSTICK NEGATIVE (NEGATIVE); URINE COLOR YELLOW; URINE GLUCOSE - DIPSTICK NEGATIVE (NEGATIVE); URINE KETONE NEGATIVE (NEGATIVE); URINE LEUK ESTERASE NEGATIVE (NEGATIVE); URINE NITRITE - DIPSTICK NEGATIVE (Negative); URINE PROTEIN - DIPSTICK NEGATIVE (NEG-TRACE); URINE UROBILINOGEN - DIPSTICK 0.2 E.U./dL (0.2)
[2017-06-28 22:21] LABS: URINE CLARITY CLEAR
[2017-06-28 22:54] VITALS: BP 106/67
== END 2017-06-28 23:00 | disposition home or self-care (01) ==
LOC: ED 15:30
PROVIDERS: Family Medicine
DX: R10.11 Right upper quadrant pain (principal); R10.31 Right lower quadrant pain; R10.32 Left lower quadrant pain; G89.29 Other chronic pain; Z95.0 Presence of cardiac pacemaker; Z87.11 Personal history of peptic ulcer disease; I10 Essential (primary) hypertension

== ENCOUNTER 2017-08-14 12:21 | Observation (INO) | payer MEDICARE ==
[~2017-08-14] VITALS: Ht 190.5 cm; Wt 85.3 kg
[~2017-08-14 12:21] MED LIST changes: +DIGOXIN0.125 MG PO; +HYDRALAZINE10 MG PO; +KLOR-CON 1010 MEQ PO; +LASIX20 MG PO; +METOPROLOL SUCC25 MG PO
[2017-08-14 12:39] LABS: HEMATOCRIT 32.3 % (39.0-50.0); HEMOGLOBIN 10.8 g/dl (14.0-18.0); IMMATURE GRANULOCYTES 0.2 % (0.0-1.0); MEAN CELL VOLUME 90.2 fL CALC (80.0-100.0); MEAN CORPUSCULAR HGB 30.2 pG CALC (26.0-32.0); MEAN CORPUSCULAR HGB CONC 33.4 g/L CALC (32.0-36.0); NEUT# 2.39 thou/uL (1.82-7.42); RED BLOOD COUNT 3.58 mill/uL (4.70-6.10); RED CELL DISTRI WIDTH 16.4 % (11.5-15.5)
[2017-08-14 12:49] LABS: CREATININE 1.6 mg/dL (0.7-1.3); POTASSIUM 3.9 mmol/l (3.5-5.1)
[2017-08-14] MEDS ORDERED: ISOSORB DIN10 MG PO (14:10)
[2017-08-14] MEDS ORDERED: DICYCLOMINE10 MG PO (14:12)
[2017-08-14] MEDS ORDERED: PANTOPRAZOLE SO40 MG PO (14:13)
[2017-08-14 14:35] VITALS: BP 162/85
[2017-08-14 16:19] VITALS: BP 177/86
[2017-08-14 18:28] VITALS: BP 169/88
[2017-08-14 19:40] VITALS: BP 156/77
[2017-08-15] VITALS: BP 162/85
[2017-08-15 04:32] VITALS: BP 166/86
[2017-08-15 05:22] LABS: HEMATOCRIT 32.4 % (39.0-50.0); HEMOGLOBIN 10.9 g/dl (14.0-18.0); MEAN CELL VOLUME 88.5 fL CALC (80.0-100.0); MEAN CORPUSCULAR HGB 29.8 pG CALC (26.0-32.0); MEAN CORPUSCULAR HGB CONC 33.6 g/L CALC (32.0-36.0); NEUT# 1.61 thou/uL (1.82-7.42); RED BLOOD COUNT 3.66 mill/uL (4.70-6.10); RED CELL DISTRI WIDTH 16.1 % (11.5-15.5)
[2017-08-15 05:32] LABS: ALBUMIN 3.2 g/dL (3.2-5.0); BILIRUBIN, TOTAL 0.4 mg/dL (0.0-1.4); CHOLESTEROL HDL RATIO 3.8 (<4.4 (CALC)); CREATININE 1.5 mg/dL (0.7-1.3); POTASSIUM 3.9 mmol/l (3.5-5.1)
[2017-08-15 08:00] VITALS: BP 164/83
[2017-08-15 11:17] VITALS: BP 155/80
== END 2017-08-15 15:30 | disposition home or self-care (01) ==
LOC: ED 12:21 → ED-I 13:01 → ED 13:01 → ED-I 13:41 → ED 13:58 → MS2 13:59
PROVIDERS: Family Medicine; ADMIT Internal Medicine Geriatric Medicine; ATTEND Internal Medicine Geriatric Medicine
DX: I24.9 Acute ischemic heart disease, unspecified (principal); R07.89 Other chest pain; I13.0 Hypertensive heart and chronic kidney disease with heart failure and stage 1 through stage 4 chronic kidney disease, or unspecified chronic kidney disease; I50.42 Chronic combined systolic (congestive) and diastolic (congestive) heart failure; I48.91 Unspecified atrial fibrillation; I25.10 Atherosclerotic heart disease of native coronary artery without angina pectoris; N18.3 Chronic kidney disease, stage 3 (moderate); K21.9 Gastro-esophageal reflux disease without esophagitis; F41.9 Anxiety disorder, unspecified; E78.5 Hyperlipidemia, unspecified; K27.9 Peptic ulcer, site unspecified, unspecified as acute or chronic, without hemorrhage or perforation; M19.90 Unspecified osteoarthritis, unspecified site; Z95.5 Presence of coronary angioplasty implant and graft; Z95.810 Presence of automatic (implantable) cardiac defibrillator

== ENCOUNTER 2017-12-19 13:34 | Observation (INO) | payer MEDICARE ==
[~2017-12-19] VITALS: Ht 190.5 cm; Wt 86.1 kg
[~2017-12-19 13:34] MED LIST changes: +DICYCLOMINE10 MG PO; +PANTOPRAZOLE SO40 MG PO
--- NOTE | 2017-12-19 13:35 | NUR ---
TO ROOM 9
--- NOTE | 2017-12-19 13:52 | NUR ---
PT STATES THAT HE BEGAN HAVING LOWER STERNAL PAIN THIS MORNING AFTER EATTING A BIG BREAKFAST. PT DENIES ANY SOB, N/V OR WEAKNESS. PT IS AOX4.
[2017-12-19 14:04] LABS: HEMATOCRIT 36.4 % (39.0-50.0); IMMATURE GRANULOCYTES 0.4 % (0.0-1.0); MEAN CELL VOLUME 90.1 fL CALC (80.0-100.0); MEAN CORPUSCULAR HGB 29.7 pG CALC (26.0-32.0); NEUT# 2.69 thou/uL (1.82-7.42); RED BLOOD COUNT 4.04 mill/uL (4.70-6.10); RED CELL DISTRI WIDTH 17.9 % (11.5-15.5)
[2017-12-19 14:10] LABS: CREATININE 1.6 mg/dL (0.7-1.3); POTASSIUM 4.2 mmol/l (3.5-5.1)
--- NOTE | 2017-12-19 14:28 | NUR ---
CM received a call from Rosy in the E.D. requesting on behalf of regarding admission status for chest pain r/o WI. CM advised Observation.
--- NOTE | 2017-12-19 14:52 | NUR ---
PT RESTING ON STRETCHER, STATES PAIN IS ALITTLE LESS. NO COMPLAINTS STATED
--- NOTE | 2017-12-19 15:15 | NUR ---
[facility] CALLED FOR REPORT. ACCEPTED PT
--- NOTE | 2017-12-19 15:25 | NUR ---
PT ARRIVED FROM ER VIA WC ACCOMPANIED BY STAFF IV SITE IS FREE FROM REDNESS OR EDEMA.
[2017-12-19 15:26] VITALS: BP 131/76
--- NOTE | 2017-12-19 15:29 | NUR ---
Admission Note Report Given to: [facility] VANDANA Transported by: Wheelchair X Stretcher Transported with: X Nurse Transporter X Patent IV O2 X Supervisor [employer] [place] [facility] [place]
--- NOTE | 2017-12-19 16:00 | NUR ---
ASSESSMENT IS COMPLTED : PT'S HRT IS IRREGULAR DUE TO PACEMAKER ABD IS SOFT WITH ACTIVE BS . BREATH SOUNDS ARE CLEAR, BILATERALLY. CONTINUE TO OSBERVE AND MONITOR.
--- NOTE | 2017-12-19 16:54 | NUR ---
IN TO VISIT WITH PT,
[2017-12-19 19:10] VITALS: BP 123/72
--- NOTE | 2017-12-19 19:45 | NUR ---
BEDSIDE REPORT RECEIVED FROM VANDANA SANZ. PT RESTING IN BED SUPINE; ALERT AND ORIENTED. C/O MILD PAIN TO LEFT UPPER CHEST; STATES THAT IT FEELS BETTER THAN UPON ADMISSION. NITRO PASTE TO LEFT UPPER CHEST. TELE ON. RESPIRATIONS EVEN AND UNLABORED ON ROOM AIR. PLAN OF CARE DISCUSSED. PT ENCOURAGED TO VERBALIZE CONCERNS. STATES UNDERSTANDING. SAFETY MEASURES IN PLACE. CALL LIGHT WITHIN REACH.
--- NOTE | 2017-12-19 21:54 | NUR ---
PT AMBULATING IN HALLWAY WITH STEADY GAIT. RESTORIL GIVEN AT HS PER REQUEST.
[2017-12-19 23:25] VITALS: BP 148/90
--- NOTE | 2017-12-20 | NUR ---
PT ASLEEP AT THIS TIME WITH NO SIGNS OF DISRESS. RESPIRATIONS EVEN AND UNLABORED ON ROOM AIR. IV SITE APPEARS HEALTHY AND FLUSHES. RESTORIL GIVEN AT HS. INDEPENDENT IN ROOM. SAFETY MEASURES IN PLACE. CALL LIGHT WITHIN REACH.
--- NOTE | 2017-12-20 04:15 | NUR ---
PT ASLEEP AT THIS TIME WITH NO SIGNS OF DISTRESS; AWAKENS SPONTANEOUSLY. RESPIRATIONS EVEN AND UNLABORED ON ROOM AIR. NO ACUTE CHANGES IN CONDITION THROUGHOUT THE NIGHT. SAFETY MEASURES IN PLACE. CALL LIGHT WITHIN REACH.
[2017-12-20 04:37] VITALS: BP 134/76
[2017-12-20 05:49] LABS: HEMATOCRIT 37.9 % (39.0-50.0); HEMOGLOBIN 12.6 g/dl (14.0-18.0); MEAN CELL VOLUME 89.6 fL CALC (80.0-100.0); MEAN CORPUSCULAR HGB 29.8 pG CALC (26.0-32.0); MEAN CORPUSCULAR HGB CONC 33.2 g/L CALC (32.0-36.0); NEUT# 1.54 thou/uL (1.82-7.42); RED BLOOD COUNT 4.23 mill/uL (4.70-6.10); RED CELL DISTRI WIDTH 17.8 % (11.5-15.5)
[2017-12-20 06:02] LABS: ALBUMIN 3.8 g/dL (3.2-5.0); BILIRUBIN, TOTAL 0.6 mg/dL (0.0-1.4); CREATININE 1.6 mg/dL (0.7-1.3); POTASSIUM 4.2 mmol/l (3.5-5.1); TOTAL PROTEIN 7.1 g/dL (6.3-8.2)
[2017-12-20 07:16] VITALS: BP 140/80
--- NOTE | 2017-12-20 07:29 | NUR ---
PT RESTING IN BED, NO SIGNS OF DISTRESS NOTED, RESP EVEN AND UNLABORED. PT ALERT AND ORIENTED X3. NO EDEMA. SKIN INTACT. ASSESSMENT COMPLETED AT THIS TIME. VOICES NO NEEDS OR COMPLAINTS AT THIS TIME. CALL LIGHT IN REACH,CONTINUE TO MONITOR.
[2017-12-20 13:35] VITALS: BP 125/72
--- NOTE | 2017-12-20 14:45 | NUR ---
PT SITTING IN ROOM ON COUCH, NO SIGNS OF DISTRESS NOTED. RESP EVEN AND UNLABORED. PT VOICES NO NEEDS OR COMPLAINTS AT THIS TIME. CALL LIGHT IN REACH,CONTINUE TO MONITOR.
[2017-12-20 16:40] VITALS: BP 127/77
--- NOTE | 2017-12-20 17:05 | NUR ---
Discharged to: Home Discharged via: Wheelchair Accompanied by: family D/C Condition: stable Diet: as tolerated Diet modification: low sodium Activity: As tolerated Home Health: NONE Follow up appointment: F/U WITH 'S OFFICE IN 1 WEEK Special instructions: CONTINUE MEDICATIONS BEFORE Medications: SEE MEDICATION RECONCILIATION FORM Prescriptions Given: N/A Please notify your physician if you received either one of these vaccinations: Influenza Vaccine - Date: Pneumococcal Vaccine - Date: Patient Education Materials Provided: - Food and Drug Interaction Guide - Anticoagulation Education Booklet Contains the following information: 1. Compliance issues 2. Dietary advice 3. Follow up monitoring 4. Potential for adverse drug reactions and interactions - Smoking Cessation Booklet IF SYMPTOMS WORSEN, OR IF YOU HAVE ADDITIONAL QUESTIONS, PLEASE CONTACT YOUR PERSONAL PHYSICIAN OR SEEK EMERGENCY CARE. CALL YOUR PHYSICIAN IF YOU DO NOT GET RELIEF FROM THE PAIN MEDICATIONS PRESCRIBED, OR IF THE INTENSITY OF PAIN INCREASES, OR IF PAIN IS INTERFERING WITH ACTIVITY OR REST. IF YOU SMOKE, YOU NEED TO QUIT. IT IS GOOD FOR YOU AND EVERYONE AROUND YOU! Your physician and [facility] care about you and your health. The facts are clear. Smoking causes 1 out of 5 deaths in the [place] each year. It is the major preventable cause of emphysema, lung cancer, chronic bronchitis, heart disease and stroke. Quitting is one of the best things you can ever do for yourself and those you love. What better time to quit than now! You've already been cigarette free during your stay. Studies have shown that the first 48 hours of quitting are the toughest. Just a few of the benefits your body begins to experience are blood pressure returns to normal, the carbon monoxide level in your blood drops to normal, your chance of heart attack decreases, and your ability to smell and taste is enhanced. Here are some resources that you may find helpful: [employer] www.lungusa.org www.cancer.org [place] [employer] [place] Department of Health (Tobacco Prevention and Control Program) www.americanheart.org www.[facility].fl.us Finally don't forget that your doctor may be able to help you. Whichever method you choose will be good for you. IF YOU HAVE A DIAGNOSIS OF CONGESTIVE HEART FAILURE, THERE ARE SEVERAL ADDITIONAL INSTRUCTIONS FOR YOU TO FOLLOW UPON DISCHARGE FROM THE HOSPITAL. Weigh yourself every day and if weight gain is greater than 2 pounds in a day, call your physican. If you experience worsening symptoms such as: Problems with breathing or shortness of breath Ankle/foot/leg swelling Unexplained weight gain greater than 2 pounds Call your physician or come to the emergency room. IF YOU HAVE A DIAGNOSIS OF STROKE, THERE ARE SEVERAL ADDITIONAL INSTRUCTIONS FOR YOU TO FOLLOW: A stroke occurs when something happens to interrupt the steady flow of blood to the brain, like a clot or a burst in a blood vessel. Brain cells quickly begin to . These INCREASE your chance of having a STROKE: * Smoking * High blood pressure * Diabetes * Obesity WARNING SIGNS OR SYMPTOMS: * Sudden weakness on one side of body. * Sudden confusion, trouble speaking or understanding. * Sudden trouble seeing. * Sudden trouble walking or loss of balance. * Sudden severe headache with no known cause. CALL At Any Sign of Stroke. You can beat a stroke. Disabilities can be prevented or limited, but you have must go to the Emergency Department immediately. Go in an Ambulance. Save Time. Be Seen Faster! If you were admitted to the hospital for a stroke After DISCHARGE you must: * Keep ALL follow up appointments. * Take your medications as ordered by your doctor. * Do not take any other drugs without checking with your doctor first. * Do not drive unless your doctor says it is okay. * Call your doctor with any questions or concerns. IF YOU WERE DISCHARGED ON COUMADIN/WARFARIN ANTICOAGULATION THERAPY, THERE ARE SEVERAL ADDITIONAL INSTRUCTIONS FOR YOU TO FOLLOW: Anticoagulants are medications that help prevent blood clots. They are often prescribed for people with certain heart, lung and blood vessel diseases to help prevent heart attacks and strokes. IMPORTANT Anticoagulation medications have been used for many years, but it can be difficult to manage. That's because many factors can affect how they work-including small changes in dose or dose timing, what you eat or drink, other medications and stress. You and your doctor must work closely together to manage this important medication. * Take your medicine EXACTLY as instructed by your doctor. * You must have your blood drawn for PT/INR to monitor your medication. * Do not take any new medications, vitamins or herbal supplements without asking your doctor first. FOODS: * Eat the same amount of foods that contain Vitamin K every day. * Avoid or limit alcohol. * Avoid major changes in diet or notify your doctor first. FOLLOW UP MONITORING: See your physician within one week to monitor your condition. You will need to have blood tests performed to monitor the medication. DRUG INTERACTIONS: * Diet and medications can affect the PT/INR level. * Do not take or discontinue any medication or over the counter medication unless your doctor okays. * Warfarin/Coumadin increases the risk of bleeding. CALL YOUR PHYSICIAN IF: If you notice any signs of increased bleedin. Excessive bruising. 2. Abnormal bleeding from nose or gums. 3. Decorah, red or dark brown urine. 4. Minor bleeding or bright red blood from the bowel. CALL 911 OR GO TO THE HOSPITAL IF: 1. You have black tarry stools. 2. Sudden dizziness, faintness or weakness. 3. Cold or numbness in arm or leg. 4. Sudden chest pain. 5. Trouble talking or moving one side of body. 6. Coughing or vomiting bright red blood. 7. Severe headache or stomach pain. 8. Serious fall or hit to the head. Visit our website at [email or web address] You are going home today. Depending on your insurance coverage, you may be receiving a bill from the hospital for your hospital stay. If you have any question about your bill, please call the Business Office at [phone] or contact us at our web address: [email or web address]. If applicable, I have received my medication information as recommeded by my provider upon discharge. I have read and understand the above discharge instructions. Pt Signature: Date: Time: Witnessed by: Date: Time: Complete the record of communication to the next provider below. These discharge instructions, including discharge medications, is to be faxed to the next provider at the time of the patient's discharge. ____These instructions faxed to next Provider (Provider Name) on (Date) @ (Time) . ____The second provider involved in patient care following discharge has been faxed this information. These instructions faxed to (Provider-Home Health, Physical Therapy, Agency) on (Date) @ (Time) . OR ____Patient unable/unwilling to verbalize who the next provider of care will be, instructed patient to take these instructions to next appointment with healthcare provider.
--- NOTE | 2017-12-20 17:45 | NUR ---
Discharge instructions given. Patient verbalizes understanding of same. Discharged in stable condition via AMBULATORY to Home with family. All belongings sent with pt.
== END 2017-12-20 17:45 | disposition home or self-care (01) ==
LOC: ED 13:34 → ED-I 14:25 → ED 14:33 → MS2 14:34
PROVIDERS: Family Medicine; ADMIT Internal Medicine Geriatric Medicine; ATTEND Internal Medicine Geriatric Medicine
DX: R07.89 Other chest pain (principal); I13.0 Hypertensive heart and chronic kidney disease with heart failure and stage 1 through stage 4 chronic kidney disease, or unspecified chronic kidney disease; I50.9 Heart failure, unspecified; E11.22 Type 2 diabetes mellitus with diabetic chronic kidney disease; N18.9 Chronic kidney disease, unspecified; I25.10 Atherosclerotic heart disease of native coronary artery without angina pectoris; E78.5 Hyperlipidemia, unspecified; K21.9 Gastro-esophageal reflux disease without esophagitis; I48.91 Unspecified atrial fibrillation; R13.10 Dysphagia, unspecified; K27.9 Peptic ulcer, site unspecified, unspecified as acute or chronic, without hemorrhage or perforation; M19.90 Unspecified osteoarthritis, unspecified site; Z95.5 Presence of coronary angioplasty implant and graft; Z86.711 Personal history of pulmonary embolism; Z85.51 Personal history of malignant neoplasm of bladder; Z95.810 Presence of automatic (implantable) cardiac defibrillator

== ENCOUNTER 2018-05-07 09:39 | Observation (INO) | payer MEDICARE ==
[~2018-05-07] VITALS: Ht 190.5 cm; Wt 82.0 kg
[~2018-05-07 09:39] MED LIST changes: +COLACE100 MG PO; +ECK MAGNESIU250 MG PO; +KLOR-CON M2020 MEQ PO; +MOTRIN800 MG PO
--- NOTE | 2018-05-07 09:41 | NUR ---
TO ROOM 10
--- NOTE | 2018-05-07 09:50 | NUR ---
INTRODUCED SELF TO PT AND PERFORMED ASSESSMENT. DISCUSSED PLAN OF CARE AND PT VERBALIZES UNDERSTANDING. EKG PERFORMED. DR TUBBS NOTIFIED OF PT STATUS.
--- NOTE | 2018-05-07 10:30 | NUR ---
PT RESTING ON STRECHER, REPORTS PAIN IS DECREASED TO 3/10 AT THIS TIME.
[2018-05-07 10:54] LABS: HEMATOCRIT 35.5 % (39.0-50.0); IMMATURE GRANULOCYTES 0.2 % (0.0-5.0); MEAN CELL VOLUME 92.9 fL CALC (80.0-100.0); MEAN CORPUSCULAR HGB 31.4 pG CALC (26.0-32.0); MEAN CORPUSCULAR HGB CONC 33.8 g/L CALC (32.0-36.0); NEUT# 2.04 thou/uL (1.82-7.42); RED BLOOD COUNT 3.82 mill/uL (4.70-6.10); RED CELL DISTRI WIDTH 13.2 % (11.5-15.5)
[2018-05-07 10:56] LABS: ALBUMIN 3.8 g/dL (3.2-5.0); BILIRUBIN, TOTAL 0.5 mg/dL (0.0-1.4); CREATININE 1.5 mg/dL (0.7-1.3); POTASSIUM 3.9 mmol/l (3.5-5.1); TOTAL PROTEIN 7.2 g/dL (6.3-8.2)
[2018-05-07] MEDS ORDERED: METOPROL TAR25 MG PO (11:16)
--- NOTE | 2018-05-07 11:34 | NUR ---
DR TUBBS AT BEDSIDE TO DISCUSS PLAN TO ADMIT
--- NOTE | 2018-05-07 11:50 | NUR ---
REPORT CALLED TO MYESHA GUZMAN
[2018-05-07] MEDS ORDERED: DIGOXIN0.125 MG PO (12:18)
[2018-05-07 12:50] VITALS: BP 169/85
--- NOTE | 2018-05-07 12:50 | NUR ---
Admission Note Report Given to: SBAR PRINTED TO FLOOR Transported by: Wheelchair X Stretcher Transported with: X Nurse Transporter X Patent IV O2 X Maintenance Machinist
--- NOTE | 2018-05-07 13:40 | NUR ---
REPORT RECEIVED FROM DORIE IN ED, PT ARRIVED ON UNIT @ 1247 VIA STRETCHER AND TRANSFERRED TO BED AFTER BEING WEIGHED. ALERT AND ORIENTED X 4, ORIENTED TO ROOM AND CALL MATT, C/O CHEST PAIN @ 08/24, VITAL SIGNS MEASURED AND RECORDED, WILL CONTINUE TO MONITOR.
[2018-05-07 16:00] VITALS: BP 172/90
--- NOTE | 2018-05-07 16:24 | NUR ---
HOME MEDS PLACED IN LABELED BAG AND SENT TO PHARMACY.
--- NOTE | 2018-05-07 16:48 | NUR ---
DR DE LA CRUZ ROUNDED AND DISCUSSED PLAN OF CARE WITH PT, PT STATED UNDERSTANDING. DR DE LA CRUZ ALSO INFORMED OF ELEVATED BP AT THIS TIME.
[2018-05-07 18:52] VITALS: BP 150/72
[2018-05-08 00:19] VITALS: BP 120/72
[2018-05-08 03:59] VITALS: BP 130/67
[2018-05-08 05:17] LABS: HEMATOCRIT 34.3 % (39.0-50.0); HEMOGLOBIN 11.6 g/dl (14.0-18.0); IMMATURE GRANULOCYTES 0.3 % (0.0-5.0); MEAN CELL VOLUME 92.7 fL CALC (80.0-100.0); MEAN CORPUSCULAR HGB 31.4 pG CALC (26.0-32.0); MEAN CORPUSCULAR HGB CONC 33.8 g/L CALC (32.0-36.0); NEUT# 1.31 thou/uL (1.82-7.42); RED BLOOD COUNT 3.7 mill/uL (4.70-6.10); RED CELL DISTRI WIDTH 13.3 % (11.5-15.5)
[2018-05-08 05:23] LABS: ALBUMIN 3.3 g/dL (3.2-5.0); BILIRUBIN, TOTAL 0.4 mg/dL (0.0-1.4); CREATININE 1.4 mg/dL (0.7-1.3); MAGNESIUM 1.6 mg/dL (1.6-2.3); POTASSIUM 4.1 mmol/l (3.5-5.1); TOTAL PROTEIN 6.4 g/dL (6.3-8.2)
[2018-05-08 07:50] VITALS: BP 125/66
--- NOTE | 2018-05-08 07:50 | NUR ---
ASSESSMENT IS COMPLETED: IV SITE IS FREE FROM REDNESS OR EDEMA. HR IS REG,PULSES ARE STRONG X4, ABD IS SOFT WITH ACTIVE BS. BREATH SOUNDS ARE CLEAR. BILATERALLY. TELE MONITOR IN PLACE. CONITNUE TO OSBERVE AND MONITOR.
[2018-05-08 12:00] VITALS: BP 123/67
--- NOTE | 2018-05-08 12:15 | NUR ---
PT IS RELAXING IN BED WITH NO DISTRESS NOTED. IV SITE IS FREE FROM REDNESS OR EDEMA. CONTINUE TO EVANS AND KATELYNN
--- NOTE | 2018-05-08 14:05 | NUR ---
DISCHARGE INSTRUCTIONS GIVEN AND VERBALIZED UNDERSTANDING IV SITE DISCONTINUED CATHETER INTACT. NO REDNESS OR EDEMA. Discharge instructions given. Patient verbalizes understanding of same. Discharged in stable condition via Ambulatory to Home with family. All belongings sent with pt.
== END 2018-05-08 14:03 | disposition home or self-care (01) ==
LOC: ED 09:39 → ED-I 11:18 → ED 12:22 → MS2 12:23
PROVIDERS: Emergency Medicine; ADMIT Internal Medicine Nephrology; ATTEND Internal Medicine Nephrology
DX: M94.0 Chondrocostal junction syndrome [Tietze] (principal); I12.9 Hypertensive chronic kidney disease with stage 1 through stage 4 chronic kidney disease, or unspecified chronic kidney disease; N18.3 Chronic kidney disease, stage 3 (moderate); I25.10 Atherosclerotic heart disease of native coronary artery without angina pectoris; E78.5 Hyperlipidemia, unspecified; K59.00 Constipation, unspecified; K21.9 Gastro-esophageal reflux disease without esophagitis; I73.9 Peripheral vascular disease, unspecified; I25.2 Old myocardial infarction; Z79.899 Other long term (current) drug therapy; Z86.711 Personal history of pulmonary embolism; Z95.0 Presence of cardiac pacemaker; R07.9 Chest pain, unspecified
CPT/HCPCS: J1650

== ENCOUNTER 2018-07-10 09:17 | Observation (INO) | payer MEDICARE ==
[~2018-07-10] VITALS: Ht 190.5 cm; Wt 86.0 kg
[~2018-07-10 09:17] MED LIST changes: +METOPROL TAR25 MG PO
[2018-07-10 09:57] LABS: HEMATOCRIT 36.8 % (39.0-50.0); HEMOGLOBIN 12.6 g/dl (14.0-18.0); IMMATURE GRANULOCYTES 0.2 % (0.0-5.0); MEAN CELL VOLUME 89.3 fL CALC (80.0-100.0); MEAN CORPUSCULAR HGB 30.6 pG CALC (26.0-32.0); MEAN CORPUSCULAR HGB CONC 34.2 g/L CALC (32.0-36.0); NEUT# 2.4 thou/uL (1.82-7.42); RED BLOOD COUNT 4.12 mill/uL (4.70-6.10); RED CELL DISTRI WIDTH 14.9 % (11.5-15.5)
[2018-07-10 10:14] LABS: INTERNATIONAL NORMALIZED RATIO 1.1 RATIO (0.7-1.3)
[2018-07-10 10:18] LABS: ALBUMIN 4.2 g/dL (3.2-5.0); CREATININE 1.5 mg/dL (0.7-1.3); POTASSIUM 3.4 mmol/l (3.5-5.1); TOTAL PROTEIN 7.3 g/dL (6.3-8.2)
[2018-07-10 10:22] LABS: DIGOXIN 1.2 ng/mL (0.8-2.0)
[2018-07-10 11:14] LABS: URINE BILIRUBIN - DIPSTICK NEGATIVE (NEGATIVE); URINE BLOOD DIPSTICK NEGATIVE (NEGATIVE); URINE COLOR YELLOW; URINE GLUCOSE - DIPSTICK NEGATIVE (NEGATIVE); URINE KETONE NEGATIVE (NEGATIVE); URINE LEUK ESTERASE NEGATIVE (NEGATIVE); URINE NITRITE - DIPSTICK NEGATIVE (Negative); URINE PROTEIN - DIPSTICK NEGATIVE (NEG-TRACE); URINE SPECIFIC GRAVITY 1.015; URINE UROBILINOGEN - DIPSTICK 0.2 E.U./dL (0.2)
[2018-07-10 13:30] VITALS: BP 146/78
[2018-07-10] MEDS ORDERED: ISOSORBIDE MONO30 MG PO (14:06)
[2018-07-10] MEDS ORDERED: ATORVASTATIN CA10 MG PO (14:59)
[2018-07-10 15:48] VITALS: BP 140/77
[2018-07-10 19:00] VITALS: BP 129/70
[2018-07-10 23:47] VITALS: BP 154/79
[2018-07-11 04:00] VITALS: BP 132/56
[2018-07-11 05:45] LABS: HEMOGLOBIN 11.8 g/dl (14.0-18.0); MEAN CORPUSCULAR HGB 30.3 pG CALC (26.0-32.0); MEAN CORPUSCULAR HGB CONC 33.7 g/L CALC (32.0-36.0); NEUT# 1.57 thou/uL (1.82-7.42); RED BLOOD COUNT 3.89 mill/uL (4.70-6.10)
[2018-07-11 06:17] LABS: ALBUMIN 3.5 g/dL (3.2-5.0); BILIRUBIN, TOTAL 0.8 mg/dL (0.0-1.4); CREATININE 1.4 mg/dL (0.7-1.3); POTASSIUM 3.2 mmol/l (3.5-5.1); TOTAL PROTEIN 6.4 g/dL (6.3-8.2)
[2018-07-11 08:12] VITALS: BP 150/77
[2018-07-11 11:00] VITALS: BP 160/79
== END 2018-07-11 14:25 | disposition home or self-care (01) ==
LOC: ED 09:17 → ED-I 11:20 → ED 11:42 → MS2 11:43
PROVIDERS: Emergency Medicine; ADMIT Internal Medicine Geriatric Medicine; ATTEND Internal Medicine Nephrology
PROC: 3E0234Z Introduction of Serum, Toxoid and Vaccine into Muscle, Percutaneous Approach (ICD-10-PCS; principal; 2018-07-11)
DX: R07.2 Precordial pain (principal); I12.9 Hypertensive chronic kidney disease with stage 1 through stage 4 chronic kidney disease, or unspecified chronic kidney disease; N18.3 Chronic kidney disease, stage 3 (moderate); E11.22 Type 2 diabetes mellitus with diabetic chronic kidney disease; I25.10 Atherosclerotic heart disease of native coronary artery without angina pectoris; J44.9 Chronic obstructive pulmonary disease, unspecified; E78.5 Hyperlipidemia, unspecified; I48.91 Unspecified atrial fibrillation; K21.9 Gastro-esophageal reflux disease without esophagitis; K27.9 Peptic ulcer, site unspecified, unspecified as acute or chronic, without hemorrhage or perforation; Z86.711 Personal history of pulmonary embolism; Z95.810 Presence of automatic (implantable) cardiac defibrillator; Z23 Encounter for immunization

== ENCOUNTER → 2018-07-29 | Outpatient (REF) ==
[~2018-07-29] MED LIST changes: +ATORVASTATIN CA10 MG PO; +ISOSORBIDE MONO30 MG PO
== END | disposition home or self-care (01) | DRG 305 ==
LOC: LAB 09:15
PROVIDERS: ATTEND Internal Medicine Geriatric Medicine
DX: I10 Essential (primary) hypertension (principal); I25.10 Atherosclerotic heart disease of native coronary artery without angina pectoris

== ENCOUNTER 2018-09-21 07:52 | Observation (INO) | payer MEDICARE ==
[~2018-09-21] VITALS: Ht 190.5 cm; Wt 87.8 kg
[2018-09-21 08:24] LABS: HEMATOCRIT 34.5 % (39.0-50.0); HEMOGLOBIN 11.1 g/dl (14.0-18.0); IMMATURE GRANULOCYTES 0.4 % (0.0-5.0); MEAN CELL VOLUME 92.2 fL CALC (80.0-100.0); MEAN CORPUSCULAR HGB 29.7 pG CALC (26.0-32.0); MEAN CORPUSCULAR HGB CONC 32.2 g/L CALC (32.0-36.0); NEUT# 2.49 thou/uL (1.82-7.42); RED BLOOD COUNT 3.74 mill/uL (4.70-6.10); RED CELL DISTRI WIDTH 15.4 % (11.5-15.5)
[2018-09-21] MEDS ORDERED: METOCLOPRAMIDE O5 MG PO (08:29)
[2018-09-21 08:41] LABS: CREATININE 1.8 mg/dL (0.7-1.3)
[2018-09-21 08:49] LABS: POTASSIUM 4.3 mmol/l (3.5-5.1)
[2018-09-21 10:36] VITALS: BP 144/75
[2018-09-21 15:05] VITALS: BP 144/76
[2018-09-21 19:30] VITALS: BP 146/72
[2018-09-22] VITALS (8 sets, daily range): BP systolic 113–156; BP diastolic 60–79
[2018-09-22 04:10] LABS: HEMATOCRIT 33.9 % (39.0-50.0); HEMOGLOBIN 11.1 g/dl (14.0-18.0); IMMATURE GRANULOCYTES 0.2 % (0.0-5.0); MEAN CELL VOLUME 91.9 fL CALC (80.0-100.0); MEAN CORPUSCULAR HGB 30.1 pG CALC (26.0-32.0); MEAN CORPUSCULAR HGB CONC 32.7 g/L CALC (32.0-36.0); NEUT# 2.26 thou/uL (1.82-7.42); RED BLOOD COUNT 3.69 mill/uL (4.70-6.10); RED CELL DISTRI WIDTH 15.2 % (11.5-15.5)
[2018-09-22 04:30] LABS: ALBUMIN 3.3 g/dL (3.2-5.0); BILIRUBIN, TOTAL 0.6 mg/dL (0.0-1.4); CREATININE 1.8 mg/dL (0.7-1.3); TOTAL PROTEIN 6.2 g/dL (6.3-8.2)
[2018-09-23 04:42] VITALS: BP 139/77
[2018-09-23 05:34] LABS: HEMATOCRIT 35.3 % (39.0-50.0); HEMOGLOBIN 11.4 g/dl (14.0-18.0); IMMATURE GRANULOCYTES 0.4 % (0.0-5.0); MEAN CELL VOLUME 91.5 fL CALC (80.0-100.0); MEAN CORPUSCULAR HGB 29.5 pG CALC (26.0-32.0); MEAN CORPUSCULAR HGB CONC 32.3 g/L CALC (32.0-36.0); NEUT# 2.1 thou/uL (1.82-7.42); RED BLOOD COUNT 3.86 mill/uL (4.70-6.10)
[2018-09-23 05:56] LABS: ALBUMIN 3.3 g/dL (3.2-5.0); BILIRUBIN, TOTAL 0.5 mg/dL (0.0-1.4); CREATININE 1.6 mg/dL (0.7-1.3); POTASSIUM 4.3 mmol/l (3.5-5.1); TOTAL PROTEIN 6.4 g/dL (6.3-8.2)
[2018-09-23 07:42] VITALS: BP 157/85
[2018-09-23 11:14] VITALS: BP 121/66
[2018-09-23 15:59] VITALS: BP 126/62
[2018-09-23 19:11] VITALS: BP 126/68
[2018-09-24 00:23] VITALS: BP 117/58
[2018-09-24 04:00] VITALS: BP 145/80
[2018-09-24 08:47] VITALS: BP 141/67
[2018-09-24 11:15] VITALS: BP 131/74
== END 2018-09-24 11:46 ==
LOC: ED 07:52 → ED-I 08:44 → ED 09:04 → MS2 09:05
PROVIDERS: Family Medicine; ADMIT Internal Medicine Geriatric Medicine; ATTEND Internal Medicine Geriatric Medicine
DX: R07.9 Chest pain, unspecified (principal); K22.4 Dyskinesia of esophagus; E78.5 Hyperlipidemia, unspecified; K21.9 Gastro-esophageal reflux disease without esophagitis; K27.9 Peptic ulcer, site unspecified, unspecified as acute or chronic, without hemorrhage or perforation; I12.9 Hypertensive chronic kidney disease with stage 1 through stage 4 chronic kidney disease, or unspecified chronic kidney disease; N18.3 Chronic kidney disease, stage 3 (moderate); I48.91 Unspecified atrial fibrillation; R97.20 Elevated prostate specific antigen [PSA]; I25.10 Atherosclerotic heart disease of native coronary artery without angina pectoris; M19.90 Unspecified osteoarthritis, unspecified site; Z95.5 Presence of coronary angioplasty implant and graft; Z95.810 Presence of automatic (implantable) cardiac defibrillator

== ENCOUNTER 2019-05-21 10:01 | Observation (INO) | payer MEDICARE ==
[~2019-05-21] VITALS: Ht 190.5 cm; Wt 84.1 kg
[~2019-05-21 10:01] MED LIST changes: +METOCLOPRAMIDE O5 MG PO
[2019-05-21] MEDS ORDERED: ALLOPURINOL100 MG PO (10:18)
[2019-05-21] MEDS ORDERED: PANTOPRAZOLE SO40 M1 PO (10:18)
[2019-05-21] MEDS ORDERED: LISINOPRIL5 MG PO (10:18)
[2019-05-21] MEDS ORDERED: TRAMADOL HCL50 MG PO (10:19)
[2019-05-21 10:36] LABS: HEMOGLOBIN 12.8 g/dl (14.0-18.0); IMMATURE GRANULOCYTES 0.3 % (0.0-5.0); MEAN CELL VOLUME 89.4 fL CALC (80.0-100.0); MEAN CORPUSCULAR HGB 29.4 pG CALC (26.0-32.0); MEAN CORPUSCULAR HGB CONC 32.8 g/L CALC (32.0-36.0); NEUT# 3.17 thou/uL (1.82-7.42); RED BLOOD COUNT 4.36 mill/uL (4.70-6.10); RED CELL DISTRI WIDTH 17.2 % (11.5-15.5)
[2019-05-21 10:46] LABS: CREATININE 1.7 mg/dL (0.7-1.3); POTASSIUM 4.3 mmol/l (3.5-5.1)
[2019-05-21 13:44] VITALS: BP 142/82
[2019-05-21 15:15] VITALS: BP 145/81
[2019-05-21 19:35] VITALS: BP 136/64
[2019-05-22 03:35] VITALS: BP 137/72
[2019-05-22 07:30] VITALS: BP 108/72
[2019-05-22 11:02] VITALS: BP 102/64
== END 2019-05-22 14:52 | disposition home or self-care (01) ==
LOC: ED 10:01 → ED-I 11:18 → ED 11:18 → ED-I 11:18 → ED 11:42 → MS2 11:43
PROVIDERS: Family Medicine; ADMIT Internal Medicine; ATTEND Internal Medicine
DX: R07.89 Other chest pain (principal); I10 Essential (primary) hypertension; I25.10 Atherosclerotic heart disease of native coronary artery without angina pectoris; I42.9 Cardiomyopathy, unspecified; E78.5 Hyperlipidemia, unspecified; Z95.810 Presence of automatic (implantable) cardiac defibrillator; Z87.891 Personal history of nicotine dependence
CPT/HCPCS: G0378

== ENCOUNTER 2020-02-19 11:23 | Observation (INO) | payer MEDICARE ==
[~2020-02-19] VITALS: Ht 190.5 cm; Wt 88.8 kg
[~2020-02-19 11:23] MED LIST changes: +ALLOPURINOL100 MG PO; +PANTOPRAZOLE SO40 M1 PO; +TRAMADOL HCL50 MG PO
--- NOTE | 2020-02-19 11:23 | NUR ---
PT IMMEADIATELY TO ROOM 12 FOR BEDSIDE TRIAGE.
--- NOTE | 2020-02-19 11:45 | NUR ---
PT STATES THAT HE BEGAN HAVING CHEST PAIN THIS MORNING, THAT DOES NOT RADIATE. STATES PAIN STARTED AT 0600. PT DENIES ANY SOB, N/V OR WEAKNESS AT THIS TIME. PT STATES PAIN IS A 6/10 AT THIS TIME.
[2020-02-19] MEDS ORDERED: FUROSEMIDE20 MG PO (11:53)
[2020-02-19] MEDS ORDERED: HYDRALAZINE10 MG PO (11:54)
[2020-02-19] MEDS ORDERED: SPIRONOLACTONE25 MG PO (11:55)
[2020-02-19] MEDS ORDERED: CETIRIZINE10 MG PO (11:55)
[2020-02-19 11:56] LABS: IMMATURE GRANULOCYTES 0.2 % (0.0-5.0); MEAN CORPUSCULAR HGB 31.2 pG CALC (26.0-32.0); MEAN CORPUSCULAR HGB CONC 32.1 g/dL CAL (32.0-36.0); NEUT# 2.38 thou/uL (1.82-7.42); RED BLOOD COUNT 3.33 mill/uL (4.70-6.10); RED CELL DISTRI WIDTH 15.9 % (11.5-15.5)
[2020-02-19 11:58] LABS: HEMATOCRIT 32.4 % (39.0-50.0); HEMOGLOBIN 10.4 g/dl (14.0-18.0); MEAN CELL VOLUME 97.3 fL CALC (80.0-100.0)
[2020-02-19 12:21] LABS: ACT PARTIAL THROMBO TIME 23.6 SECONDS (20.0-32.5); BILIRUBIN, TOTAL 0.5 mg/dL (0.0-1.4); INTERNATIONAL NORMALIZED RATIO 1.1 RATIO (0.7-1.3); POTASSIUM 4.1 mmol/l (3.5-5.1); PROTHROMBIN TIME 10.9 SECONDS (9.0-12.5); TOTAL PROTEIN 7.4 g/dL (6.3-8.2)
[2020-02-19 12:29] LABS: CREATININE 2.7 mg/dL (0.7-1.3)
--- NOTE | 2020-02-19 12:51 | NUR ---
PT RESTING ON STRETCHER, STATES PAIN HAS DECREASED TO A 3/10
--- NOTE | 2020-02-19 13:51 | NUR ---
PT RESTING ON STRETCHER, STATES NO CHANGES IN PAIN AT THIS TIME.
[2020-02-19 14:34] LABS: URINE BILIRUBIN - DIPSTICK NEGATIVE (NEGATIVE); URINE BLOOD DIPSTICK NEGATIVE (NEGATIVE); URINE COLOR YELLOW; URINE GLUCOSE - DIPSTICK NEGATIVE (NEGATIVE); URINE KETONE NEGATIVE (NEGATIVE); URINE LEUK ESTERASE NEGATIVE (NEGATIVE); URINE NITRITE - DIPSTICK NEGATIVE (Negative); URINE PROTEIN - DIPSTICK NEGATIVE (NEG-TRACE); URINE UROBILINOGEN - DIPSTICK 0.2 E.U./dL (0.2)
--- NOTE | 2020-02-19 14:47 | NUR ---
PT RESTING ON STRETCHER, AWAITING ON ROOM ASSIGNMENT
--- NOTE | 2020-02-19 14:54 | NUR ---
REPORT REC FROM KARUNA BRUNNER
--- NOTE | 2020-02-19 14:55 | NUR ---
REPORT CALLED TO GERARD SHELBY LPN ACCPETED PT
--- NOTE | 2020-02-19 15:44 | NUR ---
Admission Note Report Given to: HERON MIRANDAN Transported by: X Wheelchair Stretcher Transported with: X Nurse Transporter X Patent IV O2 X Divinity Professor Location: ICU X [facility]2 TRANSPORTED WITHOUT INCIDENT
[2020-02-19 15:45] VITALS: BP 144/79
--- NOTE | 2020-02-19 15:45 | NUR ---
PT ARRIVED TO [facility] VIA WHEELCHAIR ACCOMPANIED BY KARUNA BRUNNER. A&O X3. NO DISTRESS NOTED. PT STATES HE IS HAVING "9/10 PAIN BUT IT IS HARDLY THERE, ITS GONE NOW". EDEMA NOTED TO LT FOOT AND BILATERAL ANKLES. DONAVON BAUTISTA OFFERED BUT REFUSED. STEADY GAIT OBSERVED DURING AMBULATION. ASSESSMENT COMPLETED. ORIENTED PT TO ROOM. CALL LIGHT IN REACH. CONTINUE TO MONITOR.
[2020-02-19 19:00] VITALS: BP 137/79
--- NOTE | 2020-02-19 19:00 | NUR ---
REPORT RECEIVED FROM MYESHA SHELBY. PT RESTING IN BED FREE FROM DISTRESS AT THIS TIME. SAFETY PRECAUTIONS IN PLACE WILL CONTINUE TO MONITOR.
--- NOTE | 2020-02-19 20:10 | NUR ---
PT RESTING IN BED, ALERT AND ORIENTED. RESPIRATIONS EVEN AND UNLABORED ON RA. LUNGS SOUND CLEAR. PEDAL PULSES STRONG. PT DENIES ANY PAIN OR DISCOMFORT. SAFETY PRECAUTIONS IN PLACE. WILL CONTINUE TO MONITOR.
--- NOTE | 2020-02-20 00:13 | NUR ---
PT RESTING IN BED, WITH EYES CLOSED. RESPIRATIONS EVEN AND UNLABORED, NO S/S OF DISTRESS AT THIS TIME. WILL CONTINUE TO MONITOR.
[2020-02-20 00:25] VITALS: BP 111/60
--- NOTE | 2020-02-20 04:20 | NUR ---
PT RESTING IN BED, WITH EYES CLOSED, FREE FROM DISTRESS. WILL CONTINUE TO MONITOR.
[2020-02-20 04:38] VITALS: BP 115/68
[2020-02-20 06:28] LABS: HEMATOCRIT 36.7 % (39.0-50.0); HEMOGLOBIN 11.6 g/dl (14.0-18.0); IMMATURE GRANULOCYTES 0.2 % (0.0-5.0); MEAN CELL VOLUME 98.1 fL CALC (80.0-100.0); MEAN CORPUSCULAR HGB CONC 31.6 g/dL CAL (32.0-36.0); NEUT# 2.78 thou/uL (1.82-7.42); RED BLOOD COUNT 3.74 mill/uL (4.70-6.10); RED CELL DISTRI WIDTH 15.8 % (11.5-15.5)
[2020-02-20 06:45] LABS: CREATININE 2.2 mg/dL (0.7-1.3); MAGNESIUM 1.7 mg/dL (1.6-2.3); POTASSIUM 4.5 mmol/l (3.5-5.1)
--- NOTE | 2020-02-20 08:00 | NUR ---
PT IS SITTING IN THE SIDE OF THE BED. ASSESSMENT DONE. PT IS A&O X3. PT DENIES ANY PAIN AT THIS TIME. TELE IN PLACE. IVF INFUSING WELL. NO S/S OF DISTRESS NOTED. PT DENIES ANY NEEDS AT THIS TIME. CALL LIGHT IN REACH.
[2020-02-20 08:09] VITALS: BP 138/74
[2020-02-20 11:47] VITALS: BP 114/67
--- NOTE | 2020-02-20 12:14 | NUR ---
Discharge instructions given. Patient verbalizes understanding of same. Discharged in stable condition via Wheelchair to Home with staff. All belongings sent with pt. HOME MEDICATION SEND WITH PT.
== END 2020-02-20 12:14 | disposition home or self-care (01) ==
LOC: ED 11:23 → ED-I 13:42 → ED 13:50 → MS2 13:51
PROVIDERS: Student in an Organized Health Care Education/Training Program; ADMIT Internal Medicine; ATTEND Internal Medicine
DX: R07.9 Chest pain, unspecified (principal); N17.9 Acute kidney failure, unspecified; E86.0 Dehydration; I12.9 Hypertensive chronic kidney disease with stage 1 through stage 4 chronic kidney disease, or unspecified chronic kidney disease; N18.3 Chronic kidney disease, stage 3 (moderate); I25.10 Atherosclerotic heart disease of native coronary artery without angina pectoris; I42.9 Cardiomyopathy, unspecified; K21.9 Gastro-esophageal reflux disease without esophagitis; E78.5 Hyperlipidemia, unspecified; I25.2 Old myocardial infarction; Z95.810 Presence of automatic (implantable) cardiac defibrillator; Z85.51 Personal history of malignant neoplasm of bladder; Z87.891 Personal history of nicotine dependence; Z86.711 Personal history of pulmonary embolism; Z20.828 Contact with and (suspected) exposure to other viral communicable diseases
CPT/HCPCS: G0378; J1650

== ENCOUNTER 2020-03-27 00:14 | Observation (INO) | payer MEDICARE ==
[~2020-03-27] VITALS: Ht 190.5 cm; Wt 80.0 kg
[~2020-03-27 00:14] MED LIST changes: +CETIRIZINE10 MG PO; +FUROSEMIDE20 MG PO; +SPIRONOLACTONE25 MG PO
--- NOTE | 2020-03-27 00:15 | NUR ---
PATIENT TO ROOM 12 VIA WHEELCHAIR. UNDRESSED INTO A GOWN. PLACED ON MONITOR AND TRIAGE COMPLETED AT BEDSIDE.
[2020-03-27 01:13] LABS: HEMATOCRIT 31.5 % (39.0-50.0); HEMOGLOBIN 10.6 g/dl (14.0-18.0); IMMATURE GRANULOCYTES 0.2 % (0.0-5.0); MEAN CELL VOLUME 95.7 fL CALC (80.0-100.0); MEAN CORPUSCULAR HGB 32.2 pG CALC (26.0-32.0); MEAN CORPUSCULAR HGB CONC 33.7 g/dL CAL (32.0-36.0); NEUT# 2.08 thou/uL (1.82-7.42); RED BLOOD COUNT 3.29 mill/uL (4.70-6.10); RED CELL DISTRI WIDTH 14.4 % (11.5-15.5)
--- NOTE | 2020-03-27 01:28 | NUR ---
PT'S 02 SAT HOLDING AT 98%
--- NOTE | 2020-03-27 01:30 | NUR ---
PT UNABLE TO LIST MEDICATIONS OR DOSES. PT'S SON WENT HOME WHEN PT BROUGHT BACK TO TRIAGE.
[2020-03-27 01:38] LABS: ALBUMIN 3.7 g/dL (3.2-5.0); BILIRUBIN, TOTAL 0.3 mg/dL (0.0-1.4); CREATININE 3.1 mg/dL (0.7-1.3); POTASSIUM 4.5 mmol/l (3.5-5.1); TOTAL PROTEIN 7.2 g/dL (6.3-8.2)
[2020-03-27 01:46] LABS: ACT PARTIAL THROMBO TIME 23.6 SECONDS (20.0-32.5); INTERNATIONAL NORMALIZED RATIO 1.1 RATIO (0.7-1.3); PROTHROMBIN TIME 11.1 SECONDS (9.0-12.5)
--- NOTE | 2020-03-27 02:30 | NUR ---
PT UP TO BEDSIDE TO URINATE. NO SOB NOTED AND NO "THUMPS" NOTED SINCE ADMIT.
--- NOTE | 2020-03-27 03:00 | NUR ---
PT TO BE ADMITTED DUE TO ELEVATED D DIMER AND TO OBSERVE ON TELE.
--- NOTE | 2020-03-27 03:17 | NUR ---
Admission Note Report Given to: MYESHA MCKEON Transported by: X Wheelchair Stretcher Transported with: X Nurse Transporter X Patent IV O2 Explosives Truck Driver Location: ICU X [facility]
--- NOTE | 2020-03-27 03:30 | NUR ---
CALLED SON TO UPDATE ON PT PER PT REQUEST.
[2020-03-27 04:00] VITALS: BP 125/78
--- NOTE | 2020-03-27 07:15 | NUR ---
REPORT RECEIVED FROM MYESHA MCKEON
[2020-03-27] MEDS ORDERED: ALLOPURINOL100 MG PO (07:45)
[2020-03-27] MEDS ORDERED: HYDRALAZINE10 MG PO (07:45)
[2020-03-27] MEDS ORDERED: LOPRESSOR 550 MG/TAB PO (07:46)
[2020-03-27] MEDS ORDERED: LISINOPRIL5 MG PO (07:46)
[2020-03-27] MEDS ORDERED: LIPITOR10 M1 PO (07:46)
[2020-03-27] MEDS ORDERED: SPIRONOLACT25 MG PO (07:47)
[2020-03-27] MEDS ORDERED: PROTONIX40 M2 PO (07:47)
--- NOTE | 2020-03-27 08:00 | NUR ---
PT RESTING IN SEMI FOWLERS POSITION,A&O X3;VS OBTAINED AND ASSESSMENT COMPLETED;PT DENIES ANY CURRENT PAIN OR DISCOMFORTS,PAIN SCALE AND REPORTING EDUCATED;RESPIRATIONS EVEN AND UNLABORED ON RA,CLEAR LUNG SOUNDS;ABDOMEN SOFT ON PALPATION AND ACTIVE IN ALL 4 QUADRANTS;WEAK PEDAL PULSES WITH TRACE EDEMA NOTED TO BLE,ENCOURAGED ELEVATION;SKIN INTACT;TELE MONITORING IN PLACE;#20G TO LEFT WRIST FLUSHED AND PATENT,SITE APPEARS HEALTHY;PT REMAINS IN AIR/CONTACT PRECAUTIONS DUE TO PENDING COVID19 TESTING;PT DENIES ANY ADDITIONAL NEEDS AT THIS TIME AND IS ENCOURAGED TO CALL FOR ASSISTANCE IF NEEDED;FALL PRECAUTIONS IN PLACE WITH BED IN THE LOWEST POSITION AND CALL LIGHT IN REACH;WILL CONTINUE TO MONITOR
[2020-03-27 08:01] VITALS: BP 153/81
[2020-03-27 10:30] VITALS: BP 91/55
[2020-03-27 10:55] VITALS: BP 106/59
--- NOTE | 2020-03-27 11:00 | NUR ---
PT OOB RESTING IN CHAIR;RESPIRATIONS EVEN AND UNLABORED ON RA;PT DENIES ANY CURRENT PAIN OR DISCOMFORTS;TELE MONITORING IN PLACE;IV FLUIDS STARTED AT THIS TIME PER ORDER;ASSESSMENT REMAINS UNCHANGED;PT ENCOURAGED TO CALL FOR ASSISTANCE IF NEEDED;FALL PRECAUTIONS REMAIN IN PLACE WITH CALL LIGHT IN REACH;WILL CONTINUE TO MONITOR
[2020-03-27 15:00] VITALS: BP 108/63
--- NOTE | 2020-03-27 15:15 | NUR ---
PT APPEARS TO BE SLEEPING IN CHAIR;RESPIRATIONS EVEN AND UNLABORED ON RA;NO S/S OF DISTRESS NOTED;TELE MONITORING IN PLACE;IV FLUIDS INFUSING WITH EASE PER ORDER;ASSESSMENT REMAINS UNCHANGED;FALL PRECAUTIONS IN PLACE WITH BED IN THE LOWEST POSITION AND CALL LIGHT IN REACH;WILL CONTINUE TO MONITOR
[2020-03-27 19:00] VITALS: BP 126/71
--- NOTE | 2020-03-27 19:30 | NUR ---
PATIENT IS UP IN THE ROOM-STEADY ON HIS FEET. ASSISTED BACK TO BED. ALERT AND ORIENTEDX3. PATIENT ON CONTACT AND AIRBOURNE PRECAUTIONS AWAITING COVID TESTING RESULTS. PATIENT IS IN NEG PRESSURE ROOM. PATIENT VS ARE STABLE AND AFEBRILE. DENIES ANY COUGH. LUNGS ARE CLEAR. DENIES ANY PAIN OR PALPATATIONS AT THIS TIME. TELE MONITOR IN PLACE READING PACED WITH PVC'S-74. ABD IS SOFT-BS+. NO PEDAL EDEMA NOTED. PULSES ARE PALABLE. STATES THAT HE IS VOIDING WITHOUT ANY DIFFICULTY AND HAD BM TODAY. SAFETY AND ISOLATION PRECAUTIONS REINFORCED. CALL LIGHT IN REACH. WILL CONT TO MONITOR.
--- NOTE | 2020-03-28 | NUR ---
PATIENT RESTING IN BED-APPEARS SLEEPING WITH HOB ELEVATED AND EYES CLOSED. RESP ARE EVEN AND UNLABORED. TELE MONITOR IN PLACE. IVF PATENT AND INFUSING VIA LEFT WRIST SITE AT 100CC/HR. SITE REMAINS HEALTHY AT THIS TIME. CALL LIGHT IN REACH. WILL CONT TO MONITOR.
[2020-03-28 04:00] VITALS: BP 128/67
--- NOTE | 2020-03-28 04:31 | NUR ---
PATIENT RESTING IN BED-LAB WORK BEING DRAWN. VS TAKEN. NO COMPLAINTS AT THIS TIME. IVF NS PATENT AND INFUSING VIA LEFT WRIST SITE-REMAINS HEALTHY AT THIS TIME. ISOLATION PRECAUTIONS MAINTAINED. SAFETY PRECAUTIONS REINFORCED. CALL LIGHT IN REACH. WILL CONT TO MONITOR.
[2020-03-28 05:05] LABS: HEMATOCRIT 30.8 % (39.0-50.0); HEMOGLOBIN 10.2 g/dl (14.0-18.0); IMMATURE GRANULOCYTES 0.2 % (0.0-5.0); MEAN CELL VOLUME 98.4 fL CALC (80.0-100.0); MEAN CORPUSCULAR HGB 32.6 pG CALC (26.0-32.0); MEAN CORPUSCULAR HGB CONC 33.1 g/dL CAL (32.0-36.0); NEUT# 2.17 thou/uL (1.82-7.42); RED BLOOD COUNT 3.13 mill/uL (4.70-6.10); RED CELL DISTRI WIDTH 14.5 % (11.5-15.5)
[2020-03-28 05:31] LABS: ALBUMIN 3.3 g/dL (3.2-5.0); BILIRUBIN, TOTAL 0.3 mg/dL (0.0-1.4); CREATININE 2.2 mg/dL (0.7-1.3); POTASSIUM 4.9 mmol/l (3.5-5.1); TOTAL PROTEIN 6.6 g/dL (6.3-8.2)
--- NOTE | 2020-03-28 07:45 | NUR ---
REPORT RECEIVED FROM MYESHA JUNE. PT SITTING UP ON EDGE OF BED EATING BREAKFAST; ALERT AND ORIENTED. DENIES PAIN. RESPIRATIONS EVEN AND UNLABORED ON ROOM AIR; SPO2 91-93%; PT DOES REPORT THAT HE HAS OCCASIONAL SOB AND HAS GO GASP FOR AIR MOMENTARILY AND THEN IT RESOLVES. LUNG SOUNDS ARE DIMINISHED. EDEMA NOTED TO BLE; 1+ TO LEFT AND TRACE TO RIGHT; LLE VISUALLY LARGER THAN RIGHT; WEAK PULSES. PLAN OF CARE REVIEWED. PT ENCOURAGED TO VERALIZE CONCERNS. STATES UNDERSTANDING. SAFETY MEASURES IN PLACE. CALL LIGHT LIGHT WITHIN REACH.
[2020-03-28 07:52] VITALS: BP 127/74
--- NOTE | 2020-03-28 08:24 | NUR ---
TRANSPORTED TO [facility].
--- NOTE | 2020-03-28 08:55 | NUR ---
BACK TO ROOM; TOLERATED TEST WELL.
[2020-03-28 11:09] VITALS: BP 113/70
--- NOTE | 2020-03-28 11:30 | NUR ---
MYESHA TRAN, AT THE BEDSIDE INTEROGATING PACEMAKER.
--- NOTE | 2020-03-28 12:05 | NUR ---
PT SITTING UP IN BED. ALERT AND ORIENTED. NO S/S OF DISTRESS AT THIS TIME. SAFETY PRECAUTIONS IN PLACE. WILL CONTINUE TO MONITOR.
[2020-03-28 13:07] LABS: HEMATOCRIT 34.3 % (39.0-50.0); HEMOGLOBIN 11.2 g/dl (14.0-18.0); IMMATURE GRANULOCYTES 0.6 % (0.0-5.0); MEAN CELL VOLUME 98.8 fL CALC (80.0-100.0); MEAN CORPUSCULAR HGB 32.3 pG CALC (26.0-32.0); MEAN CORPUSCULAR HGB CONC 32.7 g/dL CAL (32.0-36.0); NEUT# 2.58 thou/uL (1.82-7.42); RED BLOOD COUNT 3.47 mill/uL (4.70-6.10); RED CELL DISTRI WIDTH 14.6 % (11.5-15.5)
[2020-03-28 13:17] LABS: CREATININE 2.1 mg/dL (0.7-1.3); POTASSIUM 4.8 mmol/l (3.5-5.1)
[2020-03-28 15:05] VITALS: BP 146/80
--- NOTE | 2020-03-28 15:31 | NUR ---
IV site discontinued, cath intact. No edema , no redness, voices no discomfort.
--- NOTE | 2020-03-28 15:43 | NUR ---
Discharge instructions given. Patient verbalizes understanding of same. Discharged in stable condition via to Home with family . All belongings sent with pt.
== END 2020-03-28 15:43 | disposition home or self-care (01) ==
LOC: ED 00:14 → ED-I 02:33 → ED 02:58 → MS2 02:59
PROVIDERS: Family Medicine; Nurse Practitioner; Physician Assistant; ADMIT Internal Medicine; ATTEND Internal Medicine
DX: R00.2 Palpitations (principal); R06.02 Shortness of breath; I12.9 Hypertensive chronic kidney disease with stage 1 through stage 4 chronic kidney disease, or unspecified chronic kidney disease; N18.30 Chronic kidney disease, stage 3 unspecified; N17.9 Acute kidney failure, unspecified; I25.10 Atherosclerotic heart disease of native coronary artery without angina pectoris; I42.9 Cardiomyopathy, unspecified; E78.5 Hyperlipidemia, unspecified; K21.9 Gastro-esophageal reflux disease without esophagitis; Z95.1 Presence of aortocoronary bypass graft; Z95.810 Presence of automatic (implantable) cardiac defibrillator; Z86.711 Personal history of pulmonary embolism; Z87.891 Personal history of nicotine dependence; Z20.828 Contact with and (suspected) exposure to other viral communicable diseases
CPT/HCPCS: A9540; J1650

== ENCOUNTER 2020-06-04 22:52 | Inpatient (IN) | payer MEDICARE ==
[~2020-06-04] VITALS: Ht 190.5 cm; Wt 86.0 kg
[~2020-06-04 22:52] MED LIST changes: +LIPITOR10 M1 PO; +LOPRESSOR 550 MG/TAB PO
--- NOTE | 2020-06-04 23:00 | NUR ---
PATIENT TO ROOM 13 VIA WHEELCHAIR. PATIENT UNDRESSED INTO A GOWN. TRIAGE COMPLETED AT BEDSIDE.
[2020-06-04 23:57] LABS: HEMATOCRIT 32.8 % (39.0-50.0); HEMOGLOBIN 10.7 g/dl (14.0-18.0); IMMATURE GRANULOCYTES 0.4 % (0.0-5.0); MEAN CELL VOLUME 97.3 fL CALC (80.0-100.0); MEAN CORPUSCULAR HGB 31.8 pG CALC (26.0-32.0); MEAN CORPUSCULAR HGB CONC 32.6 g/dL CAL (32.0-36.0); NEUT# 3.91 thou/uL (1.82-7.42); RED BLOOD COUNT 3.37 mill/uL (4.70-6.10); RED CELL DISTRI WIDTH 14.8 % (11.5-15.5)
--- NOTE | 2020-06-05 00:08 | NUR ---
PATIENT RESTING QUIETLY, FAMILY AT BEDSIDE, NO C/O PAIN OR DISCOMFORT, NO S/S OF DISTRESS NOTED, RESPIRATIONS EVEN AND UNLABORED, PATIENT STATES UNABLE TO PROVIDE URINE SAMPLE AT THIS TIME, IV FLUIDS RUNNING, URINAL PROVIDED.
[2020-06-05 00:42] LABS: ALBUMIN 3.9 g/dL (3.2-5.0); MAGNESIUM 1.5 mg/dL (1.6-2.3); POTASSIUM 4.2 mmol/l (3.5-5.1); TOTAL PROTEIN 7.4 g/dL (6.3-8.2)
--- NOTE | 2020-06-05 01:08 | NUR ---
PATIENT ABLE TO AMBULATE INDEPENDENTLY TO THE BATHROOM, PATIENT STATES THAT HE "FORGOT" TO COLLECT URINE SAMPLE WHILE IN THE BATHROOM. PATIENT REMINDED THAT URINE SAMPLE STILL NEEDED. AWAKE AND ALERT, NO C/O PAIN OR DISCOMFORT, NO S/S OF DISTRESS NOTED, RESPIRATIONS EVEN AND UNLABORED, AWAITING INPATIENT BED ASSIGNMENT.
[2020-06-05 01:10] LABS: TSH, 3RD GENERATION 4.17 uIU/mL (0.47 - 4.68)
--- NOTE | 2020-06-05 02:37 | NUR ---
HAND OFF REPORT GIVEN TO CHRIS
--- NOTE | 2020-06-05 02:50 | NUR ---
0240-REPORT TAKEN FROM ER NURSE NANCY. PT IS BEING ADMITTED FOR ACUTE PANCREATITIS. PT WILL BE BEING TRANSFERRED MOMENTARILY. WILL COMPLETE ADMISSION ASSESSMENT SOON PT GETS TO ROOM.
--- NOTE | 2020-06-05 02:50 | NUR ---
0250-PT CAME TO UNIT FROM ER. HANDOFF COMPLETED. ADMISSION ASSESMENT COMPLETED. NO S/S OF DISTRESS. PT DOES COMPLAIN OF MINOR ABDOMINAL PAIN IN LEFT LOWER QUADRANT, REPOSITIONED PT AND HE IS COMFORTABLE. PT ORIENTED TO ROOM AND UNIT. CALL LIGHT AND PHONE INSTRUCTION PROVIDED AND WITHIN REACH OF THE PATIENT. BED LOW AND LOCKED. PT STABLE. WILL CONTINUE TO MONITOR.
[2020-06-05 04:00] VITALS: BP 153/78
[2020-06-05 04:01] VITALS: BP 103/71; BP 133/84
--- NOTE | 2020-06-05 04:02 | NUR ---
ORTHOSTATIC BP BY Gem UP MORTGAGE CLERK SUPINE 153/78mmHg HR 81. SITTING 133/84mmHg, NO HR OBTAINED. STANDING 103/71mmHg, NO HR OBTAINED. PT ASYMPTOMATIC WITH CHABGE IN POSITIONS.
[2020-06-05] MEDS ORDERED: ALLOPURINOL100 MG PO (06:59)
[2020-06-05] MEDS ORDERED: HYDRALAZINE10 MG PO (06:59)
[2020-06-05] MEDS ORDERED: ATORVASTATIN CA10 MG PO (06:59)
[2020-06-05] MEDS ORDERED: LOPRESSOR50 M1 PO (07:00)
[2020-06-05] MEDS ORDERED: ALDACTONE25 MG PO (07:00)
[2020-06-05] MEDS ORDERED: LISINOPRIL5 MG PO (07:00)
[2020-06-05] MEDS ORDERED: PROTONIX40 M2 PO (07:01)
[2020-06-05] MEDS ORDERED: FUROSEMIDE20 MG PO (07:01)
[2020-06-05 07:15] VITALS: BP 116/62
--- NOTE | 2020-06-05 07:15 | NUR ---
PATIENT RESTING IN BED AT THIS TIME. PATIENT DENIES ANY NEEDS OR PAIN. PATIENT DOES EXHIBIT SMALL AMOUNT OF EDEMA IN BILATERAL FEET. SIDERAILS ARE UP CALL LIGHT WITHIN REACH. LUNG SOUNDS ARE CLEAR. IV PATENT AND RUNNING WITH .9NS AT 125 PER HOUR.
--- NOTE | 2020-06-05 11:43 | NUR ---
PATIENT RESTING IN BED AT THIS TIME DR. TRUONG IN TO SEE PATIENT. PATIENT VERBALIZING UNDERSTANDING OF PLAN OF CARE. PATIENT WILL BE GIVEN A FULL LIQUID DIET FOR LUNCH. PATIENT DENIES ALL OTHER NEEDS AT THIS TIME SIDERAILS UP X 2 CALL LIGHT WITHIN REACH.
[2020-06-05 12:07] LABS: HEMATOCRIT 34.4 % (39.0-50.0); HEMOGLOBIN 10.9 g/dl (14.0-18.0); IMMATURE GRANULOCYTES 0.3 % (0.0-5.0); MEAN CELL VOLUME 100.6 fL CALC (80.0-100.0); MEAN CORPUSCULAR HGB 31.9 pG CALC (26.0-32.0); MEAN CORPUSCULAR HGB CONC 31.7 g/dL CAL (32.0-36.0); NEUT# 12.68 thou/uL (1.82-7.42); RED BLOOD COUNT 3.42 mill/uL (4.70-6.10); RED CELL DISTRI WIDTH 14.9 % (11.5-15.5)
[2020-06-05 13:57] LABS: ALBUMIN 3.2 g/dL (3.2-5.0); BILIRUBIN, TOTAL 1.2 mg/dL (0.0-1.4); CREATININE 1.7 mg/dL (0.7-1.3); POTASSIUM 4.2 mmol/l (3.5-5.1); TOTAL PROTEIN 6.5 g/dL (6.3-8.2)
[2020-06-05 15:20] VITALS: BP 121/70
[2020-06-05 18:54] LABS: URINE BILIRUBIN - DIPSTICK NEGATIVE (NEGATIVE); URINE BLOOD DIPSTICK TRACE-INTACT (NEGATIVE); URINE COLOR YELLOW; URINE GLUCOSE - DIPSTICK NEGATIVE (NEGATIVE); URINE KETONE NEGATIVE (NEGATIVE); URINE LEUK ESTERASE NEGATIVE (NEGATIVE); URINE NITRITE - DIPSTICK NEGATIVE (Negative); URINE PROTEIN - DIPSTICK NEGATIVE (NEG-TRACE); URINE UROBILINOGEN - DIPSTICK 0.2 E.U./dL (0.2)
[2020-06-05 19:30] VITALS: BP 123/69
--- NOTE | 2020-06-05 19:30 | NUR ---
PT LAYING IN BED WATCHING TV, NO APPARENT DISTRESS OR DISCOMFORT, RESPIRATIONS REGULAR AND UNLABORED. PHYSICAL ASSESMENT COMPLETE.DENIES PAIN OR NAUSEA. ABD SOFT WITH + BOWEL SOUNDS, TOLERATING CLEAR LIQUID DIET. PLAN OF CARE REVIEWED WITH PT, MADE AWARE HE WOULD BE NPO AFTER MIDNIGHT FOR AM ABD U/S. PT VERBALIZES UNDERSTANDING AND AGREES, DENIES QUESTION. PT DENIES FURTHER NEEDS AT THIS TIME. CALL MATT WITHIN REACH, AGREES TO CALL PRN.
--- NOTE | 2020-06-06 | NUR ---
PT APPEARS TO BE SLEEPING COMFORTABLY, LAYING IN BED WITH EYES CLOSED. NO APPARENT DISTRESS, RESPIRATIONS REGULAR AND UNLABORED. CALL MATT REMAINS WITHIN REACH.
[2020-06-06 03:29] VITALS: BP 115/63
--- NOTE | 2020-06-06 03:30 | NUR ---
PT REPORTS CRAMPING ABD PAIN 08/24 AND STATES HE'D LIKE TO "TRY" THE PAIN MEDICATION. MEDICATED WITH MORPHINE 4MG IV AND ZOFRAN 4MG IV, SEE E-MAR. VS TAKEN. 300ML CLEAR YELLOW URINE EMPTIED FROM URINAL. PT DENIES FURTHER NEEDS, CALL MATT WITHIN REACH, AGREES TO CALL PRN.
[2020-06-06 05:21] LABS: HEMATOCRIT 31.8 % (39.0-50.0); HEMOGLOBIN 10.2 g/dl (14.0-18.0); IMMATURE GRANULOCYTES 0.5 % (0.0-5.0); MEAN CELL VOLUME 96.7 fL CALC (80.0-100.0); MEAN CORPUSCULAR HGB CONC 32.1 g/dL CAL (32.0-36.0); NEUT# 8.42 thou/uL (1.82-7.42); RED BLOOD COUNT 3.29 mill/uL (4.70-6.10); RED CELL DISTRI WIDTH 14.6 % (11.5-15.5)
[2020-06-06 05:46] LABS: BILIRUBIN, TOTAL 1.2 mg/dL (0.0-1.4); CREATININE 1.5 mg/dL (0.7-1.3); POTASSIUM 4.4 mmol/l (3.5-5.1); TOTAL PROTEIN 6.1 g/dL (6.3-8.2)
[2020-06-06 05:53] LABS: MAGNESIUM 1.9 mg/dL (1.6-2.3)
--- NOTE | 2020-06-06 06:09 | NUR ---
PT APPEARS TO BE SLEEPING COMFORTABLY, LAYING IN BED WITH EYES CLOSED. NO APPARENT DISTRESS, RESPIRATIONS REGULAR AND UNLABORED. CALL MATT REMAINS WITHIN REACH.
--- NOTE | 2020-06-06 07:37 | NUR ---
Patient is screened for PT intervention and it is felt he would benefit from consult if medical agrees
--- NOTE | 2020-06-06 08:14 | NUR ---
Pt screened by speech therapy. [employer] TRANSPORT DRIVER recommends further evaluation if in agreement with physician.
[2020-06-06 08:22] VITALS: BP 131/76
--- NOTE | 2020-06-06 08:48 | NUR ---
DR NEW AT BEDSIDE
--- NOTE | 2020-06-06 10:00 | NUR ---
PT TRANSPORTED TO US VIA WHEEL CHAIR IN STABLE CONDITION
--- NOTE | 2020-06-06 10:50 | NUR ---
PT BACK IN ROOM FROM RADIOLOGY. PT RESTING IN SEMI FOWLERS POSITION. RESPIRATIONS EVEN AND UNLABORED. IVF INFUSING PER ORDER, SITE APPEARS HEALTHY AND PATENT. PT DENIES ANY NEEDS AT THIS TIME. All safety and isolation precautions are in place with call light in reach. will continue to monitor
--- NOTE | 2020-06-06 12:00 | NUR ---
OT AT BEDSIDE
--- NOTE | 2020-06-06 12:01 | NUR ---
RECIEVED REPORT FROM MYESHA BARROW. PT RESTING IN SEMI FOWLERS POSITION UPON ENTERING ROOM. INTRODUCED SELF TO PT AND DISCUSSED POC. PT IS A/O X3. ASSESSMENT AND VITALS COMPLETED. RESPIRATIONS ARE EVEN AND UNLABORED ON ROOM AIR. LUNG SOUNDS ARE VIVEK.R HEART RHYTHM IS NORMAL, PACE MAKER PRESENT. BOWEL SOUNDS ARE ACTIVE IN ALL QUADRANTS. NPO STATUS DUE TO ABD BOWEL SERIES ORDERED. RADIAL AND PEDAL PULSES STRONG. #22G IN RFA RUNNING WITH IVF PER ORDER, SITE APPEARS HEALTHY AND PATENT. PT COMPLAINS OF 2/10 PAIN BUT REFUSES PAIN MEDICATION. PT DENIES ANY NEEDS AT THIS TIME. ALL SAFETY PRECAUTIONS ARE IN PLACE WIHT CALL LIGHT IN REACH. WILL CONTINUE TO MONITOR.
--- NOTE | 2020-06-06 12:41 | NUR ---
PT SITTING UP ON SIDE OF BED UPON ENTERING ROOM. RESIPIRATIONS ARE EVEN AND UNLABORED ON ROOM AIR. IVF INFUSING PER ORDER, SITE APPEARS HEALTHY AND PATENT. PT DENIES OF ANY PAIN BUT COMPLAINS OF DIZZINESS. ANNA LIMA NOTFIED. ALL SAFTEY PRECAUTIONS ARE IN PLACE WITH CALL LIGHT IN REACH. WILL CONTINUE TO MONITOR.
[2020-06-06 15:47] VITALS: BP 121/68
--- NOTE | 2020-06-06 16:15 | NUR ---
PT RESTING IN SEMI FOWLERS POSITION UPON ENTERING ROOM. RESIRATIONS ARE EVEN AND UNLABORED ON ROOM AIR. PT DENIES OF ANY PAIN. ALL SAFETY PRECAUTIONS ARE IN PLACE WITH CALL LIGHT IN REACH. WILL CONTINUE TO MONITOR
[2020-06-06 19:00] VITALS: BP 121/71
--- NOTE | 2020-06-06 20:10 | NUR ---
PT RESTING IN BED, ALERT AND ORIENTED. RESPIRATIONS ARE EVEN AND UNLABORED ON RA. LUNG SOUND CLEAR. PEDAL PULSE STRONG. PT REPORTS MILD PAIN, PT TO BE MEDICATED PER EMAR ORDERS. SAFETY PRECAUTIONSIN PLACE. WILL CONTINUE TO MONITOR.
--- NOTE | 2020-06-07 00:12 | NUR ---
PT RESTING IN BED. NO S/S OF DISTRESS AT THIS TIME. SAFETY PRECAUTIONS IN PLACE. WILL CONTINUE TO MONITOR.
--- NOTE | 2020-06-07 04:07 | NUR ---
PT RESTING IN BED FREE FROM DISTRESS AT THIS TIME. SAFETY PRECAUTIONS IN PLACE. WILL CONTINUE TO MONITOR.
[2020-06-07 04:20] VITALS: BP 128/78
[2020-06-07 05:58] LABS: HEMATOCRIT 34.3 % (39.0-50.0); HEMOGLOBIN 10.8 g/dl (14.0-18.0); IMMATURE GRANULOCYTES 0.3 % (0.0-5.0); MEAN CELL VOLUME 99.7 fL CALC (80.0-100.0); MEAN CORPUSCULAR HGB 31.4 pG CALC (26.0-32.0); MEAN CORPUSCULAR HGB CONC 31.5 g/dL CAL (32.0-36.0); NEUT# 6.55 thou/uL (1.82-7.42); RED BLOOD COUNT 3.44 mill/uL (4.70-6.10)
[2020-06-07 06:24] LABS: BILIRUBIN, TOTAL 0.8 mg/dL (0.0-1.4); CREATININE 1.4 mg/dL (0.7-1.3); POTASSIUM 4.8 mmol/l (3.5-5.1); TOTAL PROTEIN 6.2 g/dL (6.3-8.2)
[2020-06-07 07:38] VITALS: BP 107/57
--- NOTE | 2020-06-07 07:38 | NUR ---
RECIEVED REPORT FROM MYESHA BRIGHT. PT RESTING IN SEMI FOWLERS POSITION UPON ENTERING ROOM. INTRODUCED SELF TO PT AND DISCUSSED POC. PT IS A/O X3. ASSESSMENT AND VITALS COMPLETED. BP 107/57, HR 97, O2 92% ON ROOM AIR. RESPIRAITONS ARE EVEN AND UNLABORED. LUNG SOUNDS ARE CLEAR. HEART RHYTHM IS NORMAL. BOWEL SOUND SARE ACTIVE, LAST RPEORETD BM 06/06/2020. RADIAL PULSES STRONG. PEDAL PULSES WEAK. #22G IN RFA RUNNING WITH IVF, SITE APPEARS HEALTHY AND PATENT. PT COMPLAINS OF 4/10 PAIN. PT TO BE MEDICATED PER EMAR. PT DENIES ANY OTHE RPAINS OR NEEDS AT THIS TIME. ALL SAFETY PRECAUTIONS ARE IN PLACE WITH CALL LIGHT IN REACH. WILL CONTINUE TO MONITOR.
--- NOTE | 2020-06-07 10:15 | NUR ---
PT AT BEDSIDE
--- NOTE | 2020-06-07 10:24 | NUR ---
PT note Patient still with abdominal pain. He has supine YAQUELIN of 142/72 Standing BP is 98/66 and he is symptomatic. His Am Pac is 11 indicating he would do well in SNF upon DC. He is still being wrked up by surgical. He has good LE strength but is a high fall risk when standing due to his orthostatic hypotension
--- NOTE | 2020-06-07 10:46 | NUR ---
CALLED DR. KOCH AT [phone] SPOKE TO A NURSE REGARDING THIS PT. STATED SHE WILL TEXT DR. KOCH HE IS IN SURGERY AT [facility].
--- NOTE | 2020-06-07 12:48 | NUR ---
PT COMPLAINS OF 2/10 ABD PAIN. PT REFUSED PAIN MEDICATION STATING "I DONT LIKE TAKING IT BECAUSE IT MAKES ME DIZZY." RESPIRATIONS ARE EVEN AND UNLABORED ON ROOM AIR. HEAT PACK PROVIDED TO PT TO ASSIST WITH PAIN. PT DENIES OF ANY ADDITIONAL NEEDS AT THIS TIME. ALL SAFETY PRECAUTIONS ARE IN PLACE WITH CALL LIGHT IN REACH. WILL CONTINUE TO MONITOR
[2020-06-07 15:35] VITALS: BP 118/73
--- NOTE | 2020-06-07 15:38 | NUR ---
#22G IN LFA LEAKING. ATTEMPTED TO START NEW IV X2, UNSUCCESSFUL. MYESHA PRAKASH. TO ATTEMPT.
--- NOTE | 2020-06-07 16:13 | NUR ---
NEW #24G STARTED IN LAC, SITE APPEARS HEALTHY AND PATENT. IVF RECONNECTED AT 75 ML/HR ORDER. RESPIRATIONS ARE EVEN AND UNLABORED ON ROOM AIR. NEW HEAT PACK ADMINISTERED. PT TOLERATING WELL. PT REQUEST BENTYL FOR ABD PAIN. PT TO ADMINISTERED. ALL SAFETY PRECAUTIONS ARE IN PLACE WITH CALL LIGHT IN REACH. WILL CONTINUE TO MONITOR.
[2020-06-07 19:00] VITALS: BP 141/81
--- NOTE | 2020-06-07 20:11 | NUR ---
PATIENT RESTING IN BED WATCHING TV AT THIS TIME-AWAKE ALERT AND ORIENTED AND STATES THAT HE IS FEELING BETTER TONIGHT. IVF NS PATENT AND INFUSING VIA LAC SITE AT 75CC/HR. SITE IS HEALTHY. CALL LIGHT IN REACH. WILL CONT TO MONITOR.
--- NOTE | 2020-06-07 21:00 | NUR ---
DR. KOCH HERE TO SEE PATIENT. PATIENT MEDICATED WITH HS MEDS IVF PATENT AND INFUSING ORDERED. NO COMPOLAINTS AT THIS TIME. SAFETY PRECAUTIONS REINFORCED. CALL LIGHT IN REACH. WILL CONT TO MONITOR.
--- NOTE | 2020-06-08 | NUR ---
PATIENT APPEARS SLEEPING AT THIS TIME POSITIONED ON LEFT SIDE AND EYES CLOSED. RESPS ARE EVEN AND UNLABORED. IVF PATENT AND INFUSING VIA LAC SITE. CALL LIGHT IN REACH. WILL CONT TO MONITOR.
[2020-06-08 04:00] VITALS: BP 115/65
--- NOTE | 2020-06-08 04:00 | NUR ---
PATIENT APPEARS SLEEPING WILL EYES CLOSED. RESP ARE EVEN AND UNLABORED. CALL LIGHT IN REACH. WILL CONT TO MONITOR.
[2020-06-08 05:55] LABS: HEMOGLOBIN 10.2 g/dl (14.0-18.0); IMMATURE GRANULOCYTES 0.5 % (0.0-5.0); MEAN CELL VOLUME 98.5 fL CALC (80.0-100.0); MEAN CORPUSCULAR HGB 31.4 pG CALC (26.0-32.0); MEAN CORPUSCULAR HGB CONC 31.9 g/dL CAL (32.0-36.0); NEUT# 4.08 thou/uL (1.82-7.42); RED BLOOD COUNT 3.25 mill/uL (4.70-6.10); RED CELL DISTRI WIDTH 14.8 % (11.5-15.5)
[2020-06-08 06:24] LABS: ALBUMIN 2.9 g/dL (3.2-5.0); BILIRUBIN, TOTAL 0.7 mg/dL (0.0-1.4); CREATININE 1.4 mg/dL (0.7-1.3); TOTAL PROTEIN 5.9 g/dL (6.3-8.2)
[2020-06-08] MEDS ORDERED: DICYCLOMINE10 MG PO (13:06)
--- NOTE | 2020-06-08 14:05 | NUR ---
PATIENT GIVEN DC INSTRUCTIONS, IV REMOVED FROM ARM, AND SCRIPT SENT TO PHARMACY. PATIENT LEFT IN WHEELCHAIR THROUGH ER. SON IS HERE TO IT SALES REPRESENTATIVE PATIENT.
== END 2020-06-08 14:06 | disposition home or self-care (01) | DRG 439 ==
LOC: ED 22:52 → ED-I 06-05 01:00 → ED 06-05 01:12 → MS2 06-05 01:13
PROVIDERS: Family Medicine; Nurse Practitioner; ADMIT Internal Medicine; ATTEND Internal Medicine
DX: K85.90 Acute pancreatitis without necrosis or infection, unspecified (principal); I42.9 Cardiomyopathy, unspecified; N28.9 Disorder of kidney and ureter, unspecified; E86.0 Dehydration; I95.9 Hypotension, unspecified; K80.20 Calculus of gallbladder without cholecystitis without obstruction; I25.10 Atherosclerotic heart disease of native coronary artery without angina pectoris; I10 Essential (primary) hypertension; E78.5 Hyperlipidemia, unspecified; K21.9 Gastro-esophageal reflux disease without esophagitis; R53.1 Weakness; M10.9 Gout, unspecified; Z20.828 Contact with and (suspected) exposure to other viral communicable diseases; Z79.899 Other long term (current) drug therapy; Z95.810 Presence of automatic (implantable) cardiac defibrillator; Z95.1 Presence of aortocoronary bypass graft; Z85.51 Personal history of malignant neoplasm of bladder; Z86.711 Personal history of pulmonary embolism; Z87.891 Personal history of nicotine dependence
CPT/HCPCS: J1650; J3475

== ENCOUNTER 2020-10-10 | Observation (INO) | payer MEDICARE ==
[~2020-10-10] MED LIST changes: +ALDACTONE25 MG PO; +LOPRESSOR50 M1 PO
[2020-10-10 08:52] LABS: HEMATOCRIT 33.6 % (39.0-50.0); HEMOGLOBIN 10.6 g/dl (14.0-18.0); IMMATURE GRANULOCYTES 0.2 % (0.0-5.0); MEAN CELL VOLUME 100.3 fL CALC (80.0-100.0); MEAN CORPUSCULAR HGB 31.6 pG CALC (26.0-32.0); MEAN CORPUSCULAR HGB CONC 31.5 g/dL CAL (32.0-36.0); NEUT# 2.63 thou/uL (1.82-7.42); RED BLOOD COUNT 3.35 mill/uL (4.70-6.10); RED CELL DISTRI WIDTH 15.2 % (11.5-15.5)
[2020-10-10 09:20] LABS: CREATININE 2.2 mg/dL (0.7-1.3); POTASSIUM 4.5 mmol/l (3.5-5.1)
[2020-10-10 12:06] VITALS: BP 144/83
[2020-10-10 15:59] VITALS: BP 138/84
[2020-10-10 17:57] LABS: URINE BILIRUBIN - DIPSTICK NEGATIVE (NEGATIVE); URINE BLOOD DIPSTICK NEGATIVE (NEGATIVE); URINE COLOR YELLOW; URINE GLUCOSE - DIPSTICK NEGATIVE (NEGATIVE); URINE KETONE NEGATIVE (NEGATIVE); URINE LEUK ESTERASE MODERATE (Negative); URINE NITRITE - DIPSTICK NEGATIVE (Negative); URINE PROTEIN - DIPSTICK NEGATIVE (NEG-TRACE); URINE SPECIFIC GRAVITY 1.015; URINE UROBILINOGEN - DIPSTICK 0.2 E.U./dL (0.2)
[2020-10-10 17:58] LABS: URINE CLARITY HAZY
[2020-10-10 18:17] LABS: URINE TRANSITIONAL EPI. CELLS RARE hpf
[2020-10-10 19:00] VITALS: BP 145/79
[2020-10-11] VITALS: BP 109/59
[2020-10-11 04:00] VITALS: BP 116/70
[2020-10-11 05:04] LABS: HEMATOCRIT 31.5 % (39.0-50.0); HEMOGLOBIN 10.2 g/dl (14.0-18.0); IMMATURE GRANULOCYTES 0.2 % (0.0-5.0); MEAN CELL VOLUME 97.8 fL CALC (80.0-100.0); MEAN CORPUSCULAR HGB 31.7 pG CALC (26.0-32.0); MEAN CORPUSCULAR HGB CONC 32.4 g/dL CAL (32.0-36.0); NEUT# 2.17 thou/uL (1.82-7.42); RED BLOOD COUNT 3.22 mill/uL (4.70-6.10); RED CELL DISTRI WIDTH 15.1 % (11.5-15.5)
[2020-10-11 05:30] LABS: BILIRUBIN, TOTAL 0.6 mg/dL (0.0-1.4); CHOLESTEROL HDL RATIO 2.7 (<4.4 (CALC)); CREATININE 2.3 mg/dL (0.7-1.3); MAGNESIUM 1.6 mg/dL (1.6-2.3); POTASSIUM 4.5 mmol/l (3.5-5.1)
[2020-10-11 07:40] VITALS: BP 124/73
[2020-10-11 10:50] VITALS: BP 105/56
== END 2020-10-11 12:57 | disposition home or self-care (01) ==
PROVIDERS: Family Medicine; Nurse Practitioner; ADMIT Internal Medicine
DX: R07.9 Chest pain, unspecified (principal); N17.9 Acute kidney failure, unspecified; I12.9 Hypertensive chronic kidney disease with stage 1 through stage 4 chronic kidney disease, or unspecified chronic kidney disease; N18.9 Chronic kidney disease, unspecified; I25.10 Atherosclerotic heart disease of native coronary artery without angina pectoris; E78.5 Hyperlipidemia, unspecified; K21.9 Gastro-esophageal reflux disease without esophagitis; M10.9 Gout, unspecified; I42.9 Cardiomyopathy, unspecified; I25.2 Old myocardial infarction; Z95.1 Presence of aortocoronary bypass graft; Z85.51 Personal history of malignant neoplasm of bladder; Z86.711 Personal history of pulmonary embolism; Z95.810 Presence of automatic (implantable) cardiac defibrillator; Z87.891 Personal history of nicotine dependence; Z20.822 Contact with and (suspected) exposure to COVID-19
CPT/HCPCS: G0378

== ENCOUNTER 2020-11-28 10:32 | Observation (INO) | payer MEDICARE ==
[~2020-11-28] VITALS: Ht 190.5 cm; Wt 83.0 kg
--- NOTE | 2020-11-28 10:33 | NUR ---
PATIENT TO ROOM FO RTRIAGE
[2020-11-28 10:54] LABS: HEMATOCRIT 31.8 % (39.0-50.0); HEMOGLOBIN 10.6 g/dl (14.0-18.0); IMMATURE GRANULOCYTES 0.2 % (0.0-5.0); MEAN CELL VOLUME 97.5 fL CALC (80.0-100.0); MEAN CORPUSCULAR HGB 32.5 pG CALC (26.0-32.0); MEAN CORPUSCULAR HGB CONC 33.3 g/dL CAL (32.0-36.0); NEUT# 2.31 thou/uL (1.82-7.42); RED BLOOD COUNT 3.26 mill/uL (4.70-6.10); RED CELL DISTRI WIDTH 15.2 % (11.5-15.5)
[2020-11-28 11:14] LABS: ALBUMIN 3.5 g/dL (3.2-5.0); TOTAL PROTEIN 7.1 g/dL (6.3-8.2)
[2020-11-28 11:15] LABS: BILIRUBIN, TOTAL 1.1 mg/dL (0.0-1.4); POTASSIUM 3.2 mmol/l (3.5-5.1)
[2020-11-28] MEDS ORDERED: NIFEDIPINE10 M1 PO (11:25)
[2020-11-28] MEDS ORDERED: SODIUM BICAR650 MG PO (11:26)
--- NOTE | 2020-11-28 11:27 | NUR ---
PT RESTING, SON AT BEDSIDE. NO CONCERNS VOICED. VITALS STABLE ON MONITOR.
--- NOTE | 2020-11-28 12:30 | NUR ---
PT UP TO BATHROOM. STABLE. NO CONCERNS VOICED. CALL LIGHT WITHIN REACH. BED IN LOW POSITION.
--- NOTE | 2020-11-28 13:50 | NUR ---
PT SITTING UPRIGHT IN BED. NO CONCERNS VOICED.
--- NOTE | 2020-11-28 15:54 | NUR ---
LUNCH TRAY PROVIDED FOR PT.
--- NOTE | 2020-11-28 16:21 | NUR ---
REPORT GIVEN TO LEONID ON [facility]
[2020-11-28 17:00] VITALS: BP 137/83
--- NOTE | 2020-11-28 17:00 | NUR ---
REPORT RECEIVED FROM SEPTEMBER IN ED, PT ARRIVED TO UNIT @ 1630 TRANSPORTED VIA W/C, ALERT AND ORIENTED X 4, C/O PAIN TO LEFT CHEST @ 01/24 AT THIS TIME, IV CATHETER IN PLACE TO LAC, PACE MAKER IN PLACE, TELE MONITOR IN PLACE. ORIENTED TO ROOM AND CALL MATT, ALL NEEDS ADDRESSED, WILL CONTINUE TO MONITOR.
[2020-11-28 19:00] VITALS: BP 129/67
--- NOTE | 2020-11-28 20:00 | NUR ---
RECEIVED RE[PORT FROM NURSE THOMAS, PATIENT RESTING IN BED AWAKE WATCHING TV, WITH SALINE LOCK ON LAC G20 PATENT FLUSHING WELL, REMAINS ON TELE PACED WITH PVC 91, STILL HAVING PAIN ON THE LEFT CHEST RADIATES TO THE RIGHT PS 08/24 STATED BURNING, EASING UP, WILL MEDICATE, ACTIVE BOWEL SOUNDS LBM 11/28, CALL LIGHT AT REACH.
[2020-11-29] VITALS: BP 113/70
--- NOTE | 2020-11-29 00:39 | NUR ---
PATIENT RESTING IN BED WITH EYES CLOSED, NO DISCOMFORTS NOTED AT THIS TIME, TELEMETRY READING PACED 77, BREATHING UNLABORED CALL LIGHT AT REACH.
[2020-11-29 04:00] VITALS: BP 110/66
--- NOTE | 2020-11-29 04:13 | NUR ---
PATIENT RESTING IN BED, EYES CLOSED, NO DISCOMFORTS NOTED AT THIS TIME, BREATHING UNLABORED CALL LIGHT AT REACH.
[2020-11-29 06:14] LABS: HEMATOCRIT 30.8 % (39.0-50.0); HEMOGLOBIN 10.2 g/dl (14.0-18.0); MEAN CELL VOLUME 97.5 fL CALC (80.0-100.0); MEAN CORPUSCULAR HGB 32.3 pG CALC (26.0-32.0); MEAN CORPUSCULAR HGB CONC 33.1 g/dL CAL (32.0-36.0); NEUT# 1.84 thou/uL (1.82-7.42); RED BLOOD COUNT 3.16 mill/uL (4.70-6.10)
[2020-11-29 06:20] LABS: ALBUMIN 2.8 g/dL (3.2-5.0); CHOLESTEROL HDL RATIO 2.7 (<4.4 (CALC)); CREATININE 1.8 mg/dL (0.7-1.3); MAGNESIUM 1.4 mg/dL (1.6-2.3); TOTAL PROTEIN 5.7 g/dL (6.3-8.2)
[2020-11-29 06:41] LABS: BILIRUBIN, TOTAL 0.6 mg/dL (0.0-1.4); POTASSIUM 4.1 mmol/l (3.5-5.1)
[2020-11-29 07:35] VITALS: BP 115/66
--- NOTE | 2020-11-29 07:58 | NUR ---
SHIFT CHANGE REPORT, PT AWAKE ALERT AND ORIENTED, STATES HE FEELS BETTER TODAY, TELE MONITOR IN PLACE, CALL MATT IN REACH AND BED LOCKED IN LOWEST POSITION.
[2020-11-29 10:39] VITALS: BP 113/69
[2020-11-29] MEDS ORDERED: ASPIRIN 81 LOW81 MG PO (11:31)
--- NOTE | 2020-11-29 12:04 | NUR ---
PT AMBULATING TO BR, READY TO GO HOME, FEELS BETTER, NO NEW COMPLAIN, TO BE DISCHARGED LATER PER MD.
--- NOTE | 2020-11-29 14:27 | NUR ---
Discharge instructions given. Patient verbalizes understanding of same. Discharged in good condition via Wheelchair to Home with family. All belongings sent with pt.
== END 2020-11-29 13:22 | disposition home or self-care (01) ==
LOC: ED 10:32 → ED-I 13:39 → ED 14:29 → MS2 14:30
PROVIDERS: Family Medicine; Nurse Practitioner; ADMIT Internal Medicine; ATTEND Internal Medicine
DX: R07.9 Chest pain, unspecified (principal); I25.10 Atherosclerotic heart disease of native coronary artery without angina pectoris; N17.9 Acute kidney failure, unspecified; I12.9 Hypertensive chronic kidney disease with stage 1 through stage 4 chronic kidney disease, or unspecified chronic kidney disease; N18.30 Chronic kidney disease, stage 3 unspecified; K21.9 Gastro-esophageal reflux disease without esophagitis; E87.6 Hypokalemia; E78.5 Hyperlipidemia, unspecified; I42.9 Cardiomyopathy, unspecified; K44.9 Diaphragmatic hernia without obstruction or gangrene; M10.9 Gout, unspecified; Z85.51 Personal history of malignant neoplasm of bladder; Z95.1 Presence of aortocoronary bypass graft; Z95.810 Presence of automatic (implantable) cardiac defibrillator; Z86.711 Personal history of pulmonary embolism; Z20.822 Contact with and (suspected) exposure to COVID-19
CPT/HCPCS: G0378; J1650; J3475

== ENCOUNTER 2021-02-09 17:56 | Inpatient (IN) | payer MEDICARE ==
[~2021-02-09] VITALS: Ht 190.5 cm; Wt 82.0 kg
[~2021-02-09 17:56] MED LIST changes: +ASPIRIN 81 LOW81 MG PO; +NIFEDIPINE10 M1 PO; +SODIUM BICAR650 MG PO
[2021-02-09 19:42] LABS: IMMATURE GRANULOCYTES 0.2 % (0.0-5.0); MEAN CELL VOLUME 97.1 fL CALC (80.0-100.0); MEAN CORPUSCULAR HGB 32.6 pG CALC (26.0-32.0); MEAN CORPUSCULAR HGB CONC 33.6 g/dL CAL (32.0-36.0); NEUT# 4.5 thou/uL (1.82-7.42); RED BLOOD COUNT 4.11 mill/uL (4.70-6.10); RED CELL DISTRI WIDTH 14.8 % (11.5-15.5)
[2021-02-09 19:48] LABS: HEMATOCRIT 39.9 % (39.0-50.0); HEMOGLOBIN 13.4 g/dl (14.0-18.0)
[2021-02-09 19:58] LABS: ALBUMIN 4.6 g/dL (3.2-5.0); BILIRUBIN, TOTAL 0.9 mg/dL (0.0-1.4); CREATININE 2.9 mg/dL (0.7-1.3); POTASSIUM 5.1 mmol/l (3.5-5.1); TOTAL PROTEIN 8.4 g/dL (6.3-8.2)
[2021-02-09 21:50] LABS: URINE BILIRUBIN - DIPSTICK NEGATIVE (NEGATIVE); URINE BLOOD DIPSTICK TRACE-INTACT (NEGATIVE); URINE COLOR YELLOW; URINE GLUCOSE - DIPSTICK NEGATIVE (NEGATIVE); URINE KETONE NEGATIVE (NEGATIVE); URINE LEUK ESTERASE NEGATIVE (NEGATIVE); URINE PH 5.5 (4.5-8.0); URINE PROTEIN - DIPSTICK NEGATIVE (NEG-TRACE); URINE UROBILINOGEN - DIPSTICK 0.2 E.U./dL (0.2)
[2021-02-09 21:52] LABS: URINE NITRITE - DIPSTICK NEGATIVE (Negative)
[2021-02-10] MEDS ORDERED: METOPROLOL TART50 MG PO (05:18)
[2021-02-10] MEDS ORDERED: CONSTULOSE10 GM/15 M PO (05:21)
[2021-02-10] MEDS ORDERED: FUROSEMIDE20 MG PO (05:21)
[2021-02-10] MEDS ORDERED: ALL DAY10 MG PO (05:23)
[2021-02-10] MEDS ORDERED: CILOSTAZOL50 MG PO (05:24)
[2021-02-10 05:59] LABS: CREATININE 2.4 mg/dL (0.7-1.3); MAGNESIUM 1.5 mg/dL (1.6-2.3); POTASSIUM 4.9 mmol/l (3.5-5.1)
[2021-02-10 06:48] LABS: HEMATOCRIT 33.1 % (39.0-50.0); HEMOGLOBIN 11.1 g/dl (14.0-18.0); MEAN CELL VOLUME 98.8 fL CALC (80.0-100.0); MEAN CORPUSCULAR HGB 33.1 pG CALC (26.0-32.0); MEAN CORPUSCULAR HGB CONC 33.5 g/dL CAL (32.0-36.0); RED BLOOD COUNT 3.35 mill/uL (4.70-6.10)
[2021-02-10 07:47] VITALS: BP 121/73
[2021-02-10 15:23] VITALS: BP 116/70
[2021-02-10 19:57] VITALS: BP 122/74
[2021-02-11 04:58] VITALS: BP 124/78
[2021-02-11 05:31] LABS: IMMATURE GRANULOCYTES 0.2 % (0.0-5.0); MEAN CORPUSCULAR HGB 33.3 pG CALC (26.0-32.0); MEAN CORPUSCULAR HGB CONC 33.3 g/dL CAL (32.0-36.0); NEUT# 4.19 thou/uL (1.82-7.42); RED BLOOD COUNT 3.9 mill/uL (4.70-6.10); RED CELL DISTRI WIDTH 15.5 % (11.5-15.5)
[2021-02-11 05:44] LABS: MAGNESIUM 2.5 mg/dL (1.6-2.3); POTASSIUM 5.1 mmol/l (3.5-5.1)
[2021-02-11 07:15] VITALS: BP 124/72
[2021-02-11 16:00] VITALS: BP 124/74
[2021-02-11 20:27] VITALS: BP 117/75
[2021-02-12 04:30] VITALS: BP 123/78
[2021-02-12 05:34] LABS: HEMATOCRIT 39.4 % (39.0-50.0); HEMOGLOBIN 13.3 g/dl (14.0-18.0); IMMATURE GRANULOCYTES 0.2 % (0.0-5.0); MEAN CELL VOLUME 98.3 fL CALC (80.0-100.0); MEAN CORPUSCULAR HGB 33.2 pG CALC (26.0-32.0); MEAN CORPUSCULAR HGB CONC 33.8 g/dL CAL (32.0-36.0); NEUT# 4.42 thou/uL (1.82-7.42); RED BLOOD COUNT 4.01 mill/uL (4.70-6.10); RED CELL DISTRI WIDTH 15.1 % (11.5-15.5)
[2021-02-12 05:58] LABS: POTASSIUM 4.9 mmol/l (3.5-5.1)
[2021-02-12 08:22] VITALS: BP 120/65
[2021-02-12 11:30] VITALS: BP 134/68
[2021-02-12 15:58] VITALS: BP 116/58
[2021-02-12 18:00] VITALS: BP 117/68
[2021-02-13] VITALS (11 sets, daily range): BP systolic 107–133; BP diastolic 68–82
[2021-02-13 05:38] LABS: HEMATOCRIT 34.1 % (39.0-50.0); HEMOGLOBIN 11.8 g/dl (14.0-18.0); IMMATURE GRANULOCYTES 0.2 % (0.0-5.0); MEAN CELL VOLUME 95.8 fL CALC (80.0-100.0); MEAN CORPUSCULAR HGB 33.1 pG CALC (26.0-32.0); MEAN CORPUSCULAR HGB CONC 34.6 g/dL CAL (32.0-36.0); NEUT# 2.59 thou/uL (1.82-7.42); RED BLOOD COUNT 3.56 mill/uL (4.70-6.10)
[2021-02-13 05:55] LABS: BILIRUBIN, TOTAL 0.6 mg/dL (0.0-1.4); CREATININE 1.7 mg/dL (0.7-1.3)
[2021-02-13 06:01] LABS: POTASSIUM 3.7 mmol/l (3.5-5.1)
[2021-02-14] VITALS (7 sets, daily range): BP systolic 96–131; BP diastolic 53–79
[2021-02-14 06:54] LABS: HEMOGLOBIN 10.7 g/dl (14.0-18.0); IMMATURE GRANULOCYTES 0.2 % (0.0-5.0); MEAN CELL VOLUME 97.5 fL CALC (80.0-100.0); MEAN CORPUSCULAR HGB 33.6 pG CALC (26.0-32.0); MEAN CORPUSCULAR HGB CONC 34.5 g/dL CAL (32.0-36.0); NEUT# 4.83 thou/uL (1.82-7.42); RED BLOOD COUNT 3.18 mill/uL (4.70-6.10); RED CELL DISTRI WIDTH 14.9 % (11.5-15.5)
[2021-02-14 07:12] LABS: CREATININE 1.5 mg/dL (0.7-1.3); MAGNESIUM 1.5 mg/dL (1.6-2.3); POTASSIUM 4.3 mmol/l (3.5-5.1)
[2021-02-15] VITALS (14 sets, daily range): BP systolic 62–108; BP diastolic 40–66
[2021-02-15 05:59] LABS: URINE BILIRUBIN - DIPSTICK NEGATIVE (NEGATIVE); URINE BLOOD DIPSTICK MODERATE (NEGATIVE); URINE COLOR YELLOW; URINE GLUCOSE - DIPSTICK NEGATIVE (NEGATIVE); URINE KETONE TRACE mg/dL (NEGATIVE); URINE LEUK ESTERASE NEGATIVE (NEGATIVE); URINE PH 5.5 (4.5-8.0); URINE PROTEIN - DIPSTICK TRACE mg/dL (NEG-TRACE); URINE SPECIFIC GRAVITY 1.025; URINE UROBILINOGEN - DIPSTICK 0.2 E.U./dL (0.2)
[2021-02-15 06:02] LABS: HEMATOCRIT 30.5 % (39.0-50.0); HEMOGLOBIN 10.6 g/dl (14.0-18.0); MEAN CELL VOLUME 95.6 fL CALC (80.0-100.0); MEAN CORPUSCULAR HGB 33.2 pG CALC (26.0-32.0); MEAN CORPUSCULAR HGB CONC 34.8 g/dL CAL (32.0-36.0); RED BLOOD COUNT 3.19 mill/uL (4.70-6.10)
[2021-02-15 06:22] LABS: URINE NITRITE - DIPSTICK NEGATIVE (Negative)
[2021-02-15 06:29] LABS: CREATININE 1.9 mg/dL (0.7-1.3); POTASSIUM 4.3 mmol/l (3.5-5.1)
[2021-02-15 06:33] LABS: MAGNESIUM 2.5 mg/dL (1.6-2.3)
[2021-02-15 06:39] LABS: URINE SQUAMOUS EPITHELIAL CELL FEW EPI/hpf (0-FEW); URINE WBC 0-2 WBC/hpf (0-5)
== END 2021-02-15 17:08 | disposition expired | DRG 330 ==
LOC: ED 17:56 → ED-I 20:45 → ED 20:51 → ED-I 20:52 → MS2 20:52 → MSH 02-15 15:57 → MS2 02-15 17:08 → MSH 02-15 17:47
PROVIDERS: Hospitalist; Internal Medicine; Nurse Practitioner; Surgery; ADMIT Internal Medicine; ATTEND Internal Medicine
PROC: 0DTF0ZZ Resection of Right Large Intestine, Open Approach (ICD-10-PCS; principal; 2021-02-13)
PROC: 02HV33Z Insertion of Infusion Device into Superior Vena Cava, Percutaneous Approach (ICD-10-PCS; 2021-02-13)
PROC: 0BH17EZ Insertion of Endotracheal Airway into Trachea, Via Natural or Artificial Opening (ICD-10-PCS; 2021-02-15)
PROC: 5A12012 Performance of Cardiac Output, Single, Manual (ICD-10-PCS; 2021-02-15)
DX: K56.2 Volvulus (principal); N17.9 Acute kidney failure, unspecified; I42.9 Cardiomyopathy, unspecified; I13.0 Hypertensive heart and chronic kidney disease with heart failure and stage 1 through stage 4 chronic kidney disease, or unspecified chronic kidney disease; I50.9 Heart failure, unspecified; N18.9 Chronic kidney disease, unspecified; I48.91 Unspecified atrial fibrillation; I46.2 Cardiac arrest due to underlying cardiac condition; E83.42 Hypomagnesemia; I25.10 Atherosclerotic heart disease of native coronary artery without angina pectoris; E78.5 Hyperlipidemia, unspecified; K21.9 Gastro-esophageal reflux disease without esophagitis; M10.9 Gout, unspecified; Z85.51 Personal history of malignant neoplasm of bladder; Z95.810 Presence of automatic (implantable) cardiac defibrillator; Z86.711 Personal history of pulmonary embolism; Z87.891 Personal history of nicotine dependence; Z95.1 Presence of aortocoronary bypass graft; Z20.822 Contact with and (suspected) exposure to COVID-19
CPT/HCPCS: J0282; J2710; J3475; P9047; S0164